=== PATIENT | female | born 1935 | race African-American/Black ===

== ENCOUNTER 2016-10-02 19:06 | Inpatient (IN) | payer MEDICARE, OTHER ==
[~2016-10-02] VITALS: Ht 166.4 cm; Wt 91.5 kg
[~2016-10-02 19:06] MED LIST: AMLO2.5T78 PO; ASCO500T22 PO; ASPI-535 PO; ATOR20TA65 PO; DEXT1DRO6 OP; DIVA250T60 PO; DOCU-144 PO; FAMO-18 PO; GLIP10TA95 PO; HYDR-3671 PO; LANT3I SC; LORA-441 PO; MULT-761 PO; NOV SC; OXYB5TAB22 PO; QUET100T PO; ZOLP5TAB PO; [UNRECOGNIZED DRUG - OTHER]; [UNRECOGNIZED DRUG - OTHER]
[2016-10-02] MEDS ORDERED: ONDANSETRON 4 MG INJ IV STA (19:30)
[2016-10-02 19:49] LABS: ADD SCAN DIFF NO
--- NOTE | 2016-10-02 19:56 | RADRPT ---
PROCEDURE: XR Chest. CLINICAL INDICATION: Abdominal pain TECHNIQUE: Anterior chest x-ray. COMPARISON: None. FINDINGS: Examination is limited due to rotated, supine positioning. The lungs are clear. No pleural effusion identified. There is no evidence of pneumothorax. Mediastinum is widened. This is likely due to rotated positioning. The cardiomediastinal silhouett e is unremarkable. The soft tissues are normal. Osseous structures are unremarkable. IMPRESSION: 1. No acute disease is seen in the chest, with limitation due to rotated positioning. RPTAT: QQ .Eris Wren MD, Date Time Electronically viewed and signed by .Eris Wren MD, on 10/02/2016 19:56 .M/
[2016-10-02 20:00] LABS: ALBUMIN 4.3 g/dl (3.3-4.9); CHLORIDE 100 mmol/L (97-110); SODIUM 145 mmol/L (135-144)
[2016-10-02 20:01] LABS: POTASSIUM 4.4 mmol/L (3.5-5.1)
[2016-10-02 20:02] LABS: CREATININE 1.35 mg/dl (0.44-1.00)
[2016-10-02 20:03] LABS: ALANINE AMINOTRANSFERASE 29 IU/L (13-69); ALBUMIN/GLOBULIN RATIO 1.07; ALKALINE PHOSPHATASE 120 IU/L (42-121); ANION GAP 21 (8-16); ASPARTATE AMINO TRANSFERASE 22 IU/L (15-46); BILIRUBIN,INDIRECT 0.2 mg/dl (0-1.1); BILIRUBIN,TOTAL 0.2 mg/dl (0.2-1.3); CARBON DIOXIDE 28 mmol/L (21-31); GLUCOSE 215 mg/dl (70-220); TOTAL PROTEIN 8.3 g/dl (6.1-8.1)
[2016-10-02 20:04] LABS: BASOPHILS % 0.2 % (0.0-2.0); EOSINOPHILS % 0.3 % (0.0-7.0); HEMOGLOBIN 13.7 g/dl (12.0-16.0); LYMPHOCYTES # 1.6 10^3/ul (0.8-2.9); LYMPHOCYTES % 17.3 % (15.0-51.0); MEAN CORPUSCULAR HGB CONC 31.9 g/dl (32.0-37.0); MEAN CORPUSCULAR VOLUME 87.8 fl (82.0-101.0); MEAN PLATELET VOLUME 10.6 fl (7.4-10.4); MONOCYTE # 0.3 10^3/ul (0.3-0.9); MONOCYTES % 3.3 % (0.0-11.0); NEUTROPHIL # 7.4 10^3/ul (1.6-7.5); NEUTROPHILS % 78.6 % (39.0-77.0); PLATELET COUNT 244 10^3/UL (140-415); RED CELL DISTRIBUTION WIDTH 14.2 % (11.5-14.5); WHITE BLOOD COUNT 9.4 10^3/ul (4.8-10.8)
[2016-10-02 20:24] LABS: TROPONIN-I < 0.012 ng/ml (0.00-0.12)
[2016-10-02] MEDS ORDERED: IODIXANOL LOCM 100 ML BTL ONE (20:26)
[2016-10-02] MEDS ORDERED: SOD CHLORIDE 0.9% 100 ML ONE (20:26)
[2016-10-02 20:29] LABS: BLOOD UREA NITROGEN 31 mg/dl (7-20)
--- NOTE | 2016-10-02 21:30 | RADRPT ---
PROCEDURE: CT abdomen and pelvis with contrast. CLINICAL INDICATION: Abdominal pain. TECHNIQUE: CT scan of the abdomen and pelvis with contrast was performed. Coronal and sagittal im ages were also reformatted. 100 cc Visipaque 320 intravenous contrast was administered without comp lication. Total exam CTDIvol = 16.74 mGy and DLP = 864.86 mGy-cm. COMPARISON: None. FINDINGS: Visualized lower thorax: Mild subsegmental atelectasis is present. The visualized heart is top norm al in size with mild pericardial fat deposition. There is no evidence for pleural effusion. Liver, gallbladder, pancreas and spleen: Normal hepatic contour, attenuation in size. Rounded calc ified lesion within the left hepatic lobe is likely a benign granuloma or hemangioma the finding gabriela suring approximately 1.6 cm. No suspicious-appearing masses or ductal dilatation on this unenhanced exam are present. Multiple calcified gallstones are seen without evidence of acute cholecystitis. No common bile duct dilatation is evident. The pancreas is normal. Punctate splenic granuloma are present without splenomegaly. Adrenal glands and genitourinary system: The adrenal glands are normal bilaterally. The kidneys ar e normal in size, contour and attenuation with no evidence for masses, calculi or hydronephrosis. Ca lcification within the left renal hilum is believed to be vascular related to the renal artery The u reters are unremarkable. The urinary bladder shows no abnormality. The uterus is atrophic with vas cular calcifications. The uterus is slightly anteverted to the left. There is no evidence of ovari an or adnexal mass. Gastrointestinal system: Small sliding hiatal hernia is present the remainder of the stomach is dec ompressed and unremarkable There is no evidence of obstruction, ileus or inflammation. A small infr aumbilical right paracentral ventral hernia measures approximate 2.4 cm and contains fat and nondila megha loops of ileum without associated obstruction (series 3 image 1 of 44) there is no evidence of a ppendicitis. Copious fecal debris is present throughout the colon with a marked amount of feces in t he rectum, mild rectal wall thickening and perirectal fat inflammation cannot exclude proctitis or s tercoral colitis (series 3 images 143-154). No pneumatosis is present Peritoneum, retroperitoneum, vessels and lymph nodes: The abdominal aorta is normal in caliber. Th ere is moderate aortic and iliac system atherosclerotic calcification. Inferior vena cava is normal in caliber. There is no evidence for adenopathy. The peritoneal cavity is normal with no evidence for ascites. No pneumoperitoneum is noted Osseous structures and musculoskeletal system: Demineralization with chronic-appearing T11 compress ion deformity and severe degenerative disk narrowing at L3-4, L4-5 and L5-S1. Severe facet arthropa thy of the lower lumbar levels is also noted. There is no fracture, lytic or blastic lesion. Copio us subcutaneous adipose tissue is likely related to morbid obesity. RPTAT:HJJR IMPRESSION: 1. Fecal impaction of the rectum with mild thickening of the rectal wall and stranding of the surrou nding fat raising concern for proctitis or stercoral colitis. 2. Small infraumbilical right paracentral ventral hernia containing a nondilated loops of small bow el, no ileus or obstruction pattern is present. 3. Cholelithiasis without CT evidence of cholecystitis. 4. Chronic granulomatous disease of the spleen and likely liver. 5. Small sliding hiatal hernia. 6. Chronic-appearing T11 compression deformity with severe degenerative disk disease and facet arth ropathy at L3-4, L4-5 and L5-S1. 7. Aortic atherosclerosis is present. Physician Millicent Date Time Electronically viewed and signed by Physician Millicent on 10/02/2016 21:30 /
[2016-10-02 21:55] LABS: ADD UMIC YES; URINE BILIRUBIN (Dip) NEGATIVE (NEGATIVE); URINE BLOOD (Dip) NEGATIVE (NEGATIVE); URINE COLOR LT. YELLOW (YELLOW); URINE GLUCOSE (Dip) NEGATIVE (NEGATIVE); URINE KETONES (Dip) TRACE (NEGATIVE); URINE LEUKOCYTE ESTERASE (Dip) NEGATIVE (NEGATIVE); URINE NITRITE (Dip) NEGATIVE (NEGATIVE); URINE TOTAL PROTEIN (Dip) TRACE (NEGATIVE); URINE UROBILINOGEN (Dip) 0.2 E.U./dL (0.1-1.0)
--- NOTE | 2016-10-02 22:01 | ERD ---
ER Documentation Chief Complaint Date/Time DATE: 10/02/16 TIME: 19:25 Chief Complaint vomiting HPI 81-year-old female with a history of schizophrenia, bipolar disorder, major depression, hypertension, diabetes mellitus, hypothyroidism, hyperlipidemia, renal insufficiency and seizure disorder brought to the ED via ambulance from [facility] for evaluation of feeling sick. Patient planes of mild, crampy, diffuse, nonradiating abdominal pain with nausea and one episode of nonbloody, nonbilious emesis but denies diarrhea or constipation. No shortness of breath or cough. Denies chest pain or palpitations. No URI symptoms or body aches. No dysuria, polyuria, hematuria or flank pain. No fevers or chills. ROS All systems reviewed and are negative except as per history of present illness. Medications Home Meds Reported Medications Famotidine* (Pepcid*) 20 Mg Tablet, 20 MG PO DAILY, #30 TAB 02/15/16 Insulin Glargine* (Lantus*) 100 Unit/Ml Soln, 2 UNIT SC QHS, #1 VIAL 02/15/16 Glipizide* (Glucotrol*) 10 Mg Tablet, 20 MG PO DAILY, TAB 02/15/16 Oxybutynin Chloride* (Ditropan* XL) 5 Mg Tabsr, 5 MG PO DAILY, TAB.SA 02/15/16 Atorvastatin Calcium (Atorvastatin Calcium) 20 Mg Tablet, 40 MG PO QHS, #30 TAB 02/15/16 Ascorbic Acid (Ascorbic Acid With Rh) 500 Mg Tablet, 500 MG PO, TAB 02/15/16 Amlodipine Besylate* (Amlodipine Besylate*) 2.5 Mg Tablet, 2.5 MG PO DAILY, #30 TAB 02/15/16 Insulin Aspart* (Novolog Insulin Vial*) 100 U/Ml Vial, 0 SC SLIDING SCALE AC, VIAL 02/15/16 Dextran 70/Hypromellose (Artificial Tears) 1 Drp Droperette, 1 DRP OP 02/15/16 [Ziegar Ointment] No Conflict Check 02/15/16 Zolpidem Tartrate* (Ambien*) 5 Mg Tablet, 5 MG PO QHS Y for INSOMNIA, #30 TAB 02/15/16 [Lipizid] No Conflict Check, 20 MG BID 02/15/16 Hydralazine Hcl* (Hydralazine Hcl*) 25 Mg Tab, 25 MG PO Q8, #90 TAB 02/15/16 Quetiapine Fumarate* (Seroquel*) 100 Mg Tablet, 150 MG PO DAILY, #30 TAB 02/15/16 Divalproex Sodium* (Depakote*) 250 Mg Tablet.dr, 250 MG PO QID, TAB 02/15/16 Multivitamin (MULTI VITAMIN DAILY) 1 Each Tablet, 1 TAB PO DAILY, TAB 02/15/16 Aspirin Ec (Aspir 81) 81 Mg Tablet.dr, 81 MG PO DAILY, #30 TAB 02/15/16 Docusate Sodium* (Colace*) 100 Mg Capsule, 100 MG PO DAILY, #30 CAP 02/15/16 Lorazepam* (Ativan*) 0.5 Mg Tablet, 0.5 MG PO Q8 Y for AGITATION, #60 TAB 02/15/16 Allergies Allergies: Coded Allergies: No Known Allergy (Unverified , 02/15/16) PMhx/Soc Reviewed in chart. As per HPI. History of Surgery: Yes (SX POLYPS 1995) Anesthesia Reaction: No Hx Neurological Disorder: Yes (EPILEPSY) Hx Respiratory Disorders: Yes (COPD) Hx Cardiac Disorders: Yes (HTN) Hx Psychiatric Problems: Yes (ANXIETY, DEPRESSION, BIPOLAR, SCHIZOPHRENIA) Hx Miscellaneous Medical Probl: Yes (ANEMIA) Hx Alcohol Use: No Hx Substance Use: No Hx Tobacco Use: No Smoking Status: Former smoker FmHx No stroke or cancer Physical Exam Vitals Vital Signs Date Time Temp Pulse Resp B/P Pulse Ox O2 Delivery O2 Flow Rate FiO2 10/02/16 19:34 98.5 104 16 137/55 98 Physical Exam Const: Alert, mild distress due to pain Head: Atraumatic Eyes: Normal Conjunctiva ENT: Normal External Ears, Nose and Mouth. Neck: Full range of motion..~ No meningismus. Resp: Clear to auscultation bilaterally Cardio: Regular rate and rhythm, no murmurs Abd: Soft, obese, mild generalized tenderness. No rebound or guarding. Skin: No petechiae or rashes Back: No midline or flank tenderness Ext: No cyanosis, or edema Neur: Awake and alert Psych: Patient appears anxious but not depressed. Cooperative. Result Diagram: 10/03/1662110/03/16621 Results 24 hrs Laboratory Tests Test 10/02/16 19:17 10/02/16 19:40 10/02/16 21:20 Bedside Glucose 206mg/dL Alanine Aminotransferase (ALT/SGPT) 29IU/L Albumin 4.3g/dl Albumin/Globulin Ratio 1.07 Alkaline Phosphatase 120IU/L Anion Gap 21 Aspartate Amino Transf (AST/SGOT) 22IU/L Basophils # 0.010^3/ul Basophils % 0.2% Blood Urea Nitrogen 31mg/dl Calcium Level 10.0mg/dl Carbon Dioxide Level 28mmol/L Chloride Level 100mmol/L Creatinine 1.35mg/dl Direct Bilirubin 0.00mg/dl Eosinophils # 0.010^3/ul Eosinophils % 0.3% Globulin 4.00g/dl Glucose Level 215mg/dl Hematocrit 43.0% Hemoglobin 13.7g/dl Indirect Bilirubin 0.2mg/dl Lipase 111U/L Lymphocytes # 1.610^3/ul Lymphocytes % 17.3% Mean Corpuscular Hemoglobin 28.0pg Mean Corpuscular Hemoglobin Concent 31.9g/dl Mean Corpuscular Volume 87.8fl Mean Platelet Volume 10.6fl Monocytes # 0.310^3/ul Monocytes % 3.3% Neutrophils # 7.410^3/ul Neutrophils % 78.6% Nucleated Red Blood Cells # 0.010^3/ul Nucleated Red Blood Cells % 0.0/100WBC Platelet Count 02522^3/UL Potassium Level 4.4mmol/L Red Blood Count 4.9010^6/ul Red Cell Distribution Width 14.2% Sodium Level 145mmol/L Total Bilirubin 0.2mg/dl Total Protein 8.3g/dl Troponin I < 0.012ng/ml White Blood Count 9.410^3/ul Urine Bilirubin NEGATIVE Urine Clarity CLEAR Urine Color LT. YELLOW Urine Glucose NEGATIVE% Urine Hemoglobin NEGATIVE Urine Ketones TRACE Urine Leukocyte Esterase NEGATIVE Urine Microscopic RBC 0-2/HPF Urine Microscopic WBC 0-2/HPF Urine Nitrite NEGATIVE Urine Specific [place] 1.015 Urine Squamous Epithelial Cells OCCASIONAL Urine Total Protein TRACE Urine Urobilinogen 0.2 E.U./dL Urine pH 7.5 Current Medications Medications (Trade) Dose Ordered Sig/Gail Route PRN Reason Start Time Stop Time Status Last Admin Dose Admin Ondansetron HCl (Zofran Inj) 4 mg ONCE STAT IV 10/02/16 19:30 10/02/16 19:34 DC 10/02/16 19:53 IV Flush 10 ml 10 ml STK-MED ONCE .ROUTE 10/02/16 20:26 10/02/16 20:27 DC 10/02/16 20:46 Sodium Chloride (NS) 100 ml @ ud STK-MED ONCE .ROUTE 10/02/16 20:26 10/02/16 20:27 DC 10/02/16 20:46 Iodixanol 100 ml 100 ml STK-MED ONCE .ROUTE 10/02/16 20:26 10/02/16 20:27 DC 10/02/16 20:46 Piperacillin Sod/ Tazobactam Sod (Zosyn 3.375gm/ 100 ml (Pmx)) 100 ml @ 200 mls/hr ONCE ONCE IVPB 10/02/16 22:30 10/02/16 22:59 DC 10/02/16 22:44 EKG: TIME: 19:14. Sinus tachycardia. Ventricular rate 106. T-wave flattening in leads II, III, and aVF but no acute ST segment elevation or depression. No axis deviation or ectopy. Normal MT and QRS. EP Interpretation: Abnormal EKG. IMAGING: PROCEDURE: XR Chest. CLINICAL INDICATION: Abdominal pain TECHNIQUE: Anterior chest x-ray. COMPARISON: None. FINDINGS: Examination is limited due to rotated, supine positioning. The lungs are clear. No pleural effusion identified. There is no evidence of pneumothorax. Mediastinum is widened. This is likely due to rotated positioning. The cardiomediastinal silhouette is unremarkable. The soft tissues are normal. Osseous structures are unremarkable. IMPRESSION: 1. No acute disease is seen in the chest, with limitation due to rotated positioning. RPTAT: QQ .Eris Wren MD, MD Date Time Electronically viewed and signed by .Eris Wren MD, on 10/02/2016 19: 56 .M/ PROCEDURE: CT abdomen and pelvis with contrast. CLINICAL INDICATION: Abdominal pain. TECHNIQUE: CT scan of the abdomen and pelvis with contrast was performed. Coronal and sagittal images were also reformatted. 100 cc Visipaque 320 intravenous contrast was administered without complication. Total exam CTDIvol = 16.74 mGy and DLP = 864.86 mGy-cm. COMPARISON: None. FINDINGS: Visualized lower thorax: Mild subsegmental atelectasis is present. The visualized heart is top normal in size with mild pericardial fat deposition. There is no evidence for pleural effusion. Liver, gallbladder, pancreas and spleen: Normal hepatic contour, attenuation in size. Rounded calcified lesion within the left hepatic lobe is likely a benign granuloma or hemangioma the finding measuring approximately 1.6 cm. No suspicious-appearing masses or ductal dilatation on this unenhanced exam are present. Multiple calcified gallstones are seen without evidence of acute cholecystitis. No common bile duct dilatation is evident. The pancreas is normal. Punctate splenic granuloma are present without splenomegaly. Adrenal glands and genitourinary system: The adrenal glands are normal bilaterally. The kidneys are normal in size, contour and attenuation with no evidence for masses, calculi or hydronephrosis. Calcification within the left renal hilum is believed to be vascular related to the renal artery The ureters are unremarkable. The urinary bladder shows no abnormality. The uterus is atrophic with vascular calcifications. The uterus is slightly anteverted to the left. There is no evidence of ovarian or adnexal mass. Gastrointestinal system: Small sliding hiatal hernia is present the remainder of the stomach is decompressed and unremarkable There is no evidence of obstruction, ileus or inflammation. A small infraumbilical right paracentral ventral hernia measures approximate 2.4 cm and contains fat and nondilated loops of ileum without associated obstruction (series 3 image 1 of 44) there is no evidence of appendicitis. Copious fecal debris is present throughout the colon with a marked amount of feces in the rectum, mild rectal wall thickening and perirectal fat inflammation cannot exclude proctitis or stercoral colitis ( series 3 images 143-154). No pneumatosis is present Peritoneum, retroperitoneum, vessels and lymph nodes: The abdominal aorta is normal in caliber. There is moderate aortic and iliac system atherosclerotic calcification. Inferior vena cava is normal in caliber. There is no evidence for adenopathy. The peritoneal cavity is normal with no evidence for ascites. No pneumoperitoneum is noted Osseous structures and musculoskeletal system: Demineralization with chronic- appearing T11 compression deformity and severe degenerative disk narrowing at L3 -4, L4-5 and L5-S1. Severe facet arthropathy of the lower lumbar levels is also noted. There is no fracture, lytic or blastic lesion. Copious subcutaneous adipose tissue is likely related to morbid obesity. RPTAT:HJJR IMPRESSION: 1. Fecal impaction of the rectum with mild thickening of the rectal wall and stranding of the surrounding fat raising concern for proctitis or stercoral colitis. 2. Small infraumbilical right paracentral ventral hernia containing a nondilated loops of small bowel, no ileus or obstruction pattern is present. 3. Cholelithiasis without CT evidence of cholecystitis. 4. Chronic granulomatous disease of the spleen and likely liver. 5. Small sliding hiatal hernia. 6. Chronic-appearing T11 compression deformity with severe degenerative disk disease and facet arthropathy at L3-4, L4-5 and L5-S1. 7. Aortic atherosclerosis is present. Physician Millicent Date Time Electronically viewed and signed by Physician Millicent on 10/02/2016 21:30 JR/ Procedures/MDM DOCUMENTS REVIEWED: ED nurse, prior records, [facility] facility record MEDICAL DECISION MAKIN-year-old female with a history of schizophrenia, bipolar disorder, major depression, hypertension, diabetes mellitus, hypothyroidism, hyperlipidemia, renal insufficiency and seizure disorder brought to the ED via ambulance from [facility] for evaluation of feeling sick. CT consistent with fecal impaction and colitis/proctitis. Zosyn. No evidence of abscess, obstruction or other acute intra-abdominal process. No rebound, guarding or other signs of peritonitis. No criteria for SIRS or sepsis. C. Diff considered. Patient will be admitted to med/surg for GI consultation, disimpaction, further evaluation and management. Counseled patient and family regarding diagnosis, diagnostic results and plan for admission. CALLS/CONSULTS: Time 22:45, Dr. Dontae Rogers, Recommends admission to [facility]. PATIENT CARE TRANSITIONED: Time: 23:10. Dr. Ted Rogers. Departure Diagnosis: Primary Impression: Abdominal pain, acute, generalized Additional Impressions: Proctitis Fecal impaction Diabetes mellitus type 2 in obese Schizophrenia Schizophrenia type: unspecified Qualified Code: F20.9 - Schizophrenia, unspecified type Condition: Serious TOLU HUFF MD Oct 02, 2016 22:01
[2016-10-02 22:03] LABS: SQUAMOUS EPITHELIAL CELL,UR OCCASIONAL; URINE RBCS 0-2 /HPF (0)
[2016-10-02] MEDS ORDERED: PIPER-TAZO 3.375 GM IV (PMX) 100 ML IVPB ONE (22:30)
[2016-10-02] MEDS ORDERED: ONDANSETRON 4 MG INJ IV PRN (23:30)
[2016-10-02] MEDS ORDERED: ACETAMINOPHEN 325 MG TAB PO PRN (23:30)
[2016-10-03 00:10] VITALS: Ht 166.4 cm; Wt 91.5 kg
[2016-10-03] MEDS ORDERED: ACETAMINOPHEN 325 MG TAB PO PRN (01:00)
[2016-10-03] MEDS ORDERED: PIPER-TAZO 3.375 GM IV (PMX) 100 ML IVPB SCH (01:00)
[2016-10-03] MEDS ORDERED: DEXTROSE 50% 50 ML SYRINGE IV PRN ×3 (01:00→02:00)
[2016-10-03] MEDS ORDERED: BISACODYL 10 MG SUPP PR PRN (01:30)
[2016-10-03] MEDS ORDERED: glipiZIDE 10 MG TAB PO SCH (01:30)
[2016-10-03] MEDS ORDERED: ZOLPIDEM 5 MG TAB PO PRN (01:30)
[2016-10-03] MEDS ORDERED: QUETIAPINE 25 MG TAB PO PRN (01:30)
[2016-10-03] MEDS ORDERED: MAGNESIUM HYDROXIDE 30ML CUP PO PRN (01:30)
[2016-10-03] MEDS ORDERED: GLUCAGON 1 MG INJ IM PRN (02:00)
[2016-10-03] MEDS: ACCUCHECK XX SCH (02:00)
[2016-10-03] MEDS ORDERED: GLUCOSE GEL 15 GRAM TUBE BUCCAL PRN (02:00)
[2016-10-03] MEDS ORDERED: GLUCOSE GEL 15 GRAM TUBE PO PRN ×2 (02:00)
[2016-10-03] MEDS: INSULIN ASPART [NOVOLOG] 3 ML PEN SC SCH ×5 (02:13→21:00)
[2016-10-03] MEDS: ATORVASTATIN 40 MG TAB PO SCH ×2 (02:19→22:02)
[2016-10-03] MEDS: DOCUSATE SODIUM 100 MG CAP PO SCH ×2 (02:19→09:22)
[2016-10-03] MEDS: GABAPENTIN 100 MG CAP PO SCH ×4 (02:20→22:01)
[2016-10-03] MEDS: FAMOTIDINE 20 MG TAB PO SCH ×2 (02:20→22:02)
[2016-10-03] MEDS: QUETIAPINE 25 MG TAB PO SCH ×4 (02:22→22:02)
[2016-10-03] MEDS: OXCARBAZEPINE 300 MG TAB PO SCH ×4 (02:22→22:02)
[2016-10-03 03:00] VITALS: BP 161/79; RESP 20
[2016-10-03] MEDS: PIPER-TAZO 3.375 GM IV (PMX) 100 ML IVPB SCH ×3 (05:57→22:01)
[2016-10-03 06:46] LABS: ADD SCAN DIFF NO
[2016-10-03 06:52] LABS: BASOPHILS % 0.2 % (0.0-2.0); EOSINOPHILS # 0.1 10^3/ul (0.0-0.5); EOSINOPHILS % 0.5 % (0.0-7.0); HEMATOCRIT 40.9 % (37.0-47.0); HEMOGLOBIN 13.1 g/dl (12.0-16.0); LYMPHOCYTES # 2.2 10^3/ul (0.8-2.9); LYMPHOCYTES % 19.9 % (15.0-51.0); MEAN CORPUSCULAR HEMOGLOBIN 27.7 pg (29.0-33.0); MEAN CORPUSCULAR VOLUME 86.5 fl (82.0-101.0); MEAN PLATELET VOLUME 10.7 fl (7.4-10.4); MONOCYTE # 0.6 10^3/ul (0.3-0.9); MONOCYTES % 5.6 % (0.0-11.0); NEUTROPHIL # 8.1 10^3/ul (1.6-7.5); NEUTROPHILS % 73.5 % (39.0-77.0); PLATELET COUNT 193 10^3/UL (140-415); RED BLOOD COUNT 4.73 10^6/ul (4.20-5.40); RED CELL DISTRIBUTION WIDTH 14.3 % (11.5-14.5)
[2016-10-03 07:06] LABS: POTASSIUM 4.6 mmol/L (3.5-5.1)
[2016-10-03 07:09] LABS: CREATININE 1.26 mg/dl (0.44-1.00)
[2016-10-03 07:10] LABS: CALCIUM 9.6 mg/dl (8.4-10.2)
[2016-10-03 07:35] VITALS: RESP 18
[2016-10-03] MEDS: INSULIN DETEMIR [LEVEMIR] 3ML CART SC SCH ×2 (08:21→22:09)
[2016-10-03] MEDS: AMLODIPINE 2.5 MG TAB PO SCH (09:00)
[2016-10-03] MEDS: OXYBUTYNIN 5 MG TAB PO SCH (09:23)
[2016-10-03] MEDS: LINAGLIPTIN 5 MG TABLET PO SCH (09:24)
[2016-10-03] MEDS: ASCORBIC ACID 500 MG TAB PO SCH (09:24)
--- NOTE | 2016-10-03 11:46 | HP ---
DATE OF ADMISSION: 10/02/2016 CHIEF COMPLAINT: Vomiting. HISTORY OF PRESENT ILLNESS: This is a 81-year-old female with a past medical history of schizophren ia, bipolar disorder, depression, hypertension, diabetes, hypothyroidism, dyslipidemia, history of s eizure disorder, CKD, who came into [facility] room from her shelter fac[facility] l[facility] due to an episode of vomiting and feeling sick. The patient also on admission was complaining about abdominal pain. The patient in the emergency room had a CT scan of the abdomen and pelvis whi ch showed findings of fecal impaction of the rectal wall and concerning for possible proctitis or co litis. The patient also noted to have a hernia, but no evidence of obstruction. The patient in the emergency room was given IV antibiotics, IV fluids, and admitted to medical surgery for evaluation. Overnight the patient has been stable, has been tolerating p.o. No episodes of hemoptysis, hemate mesis, or hematochezia noted. PAST MEDICAL HISTORY: As stated above, history of schizophrenia, bipolar disorder, history of depre ssion, hypertension, diabetes, hypothyroidism, dyslipidemia, CKD. PAST SURGICAL HISTORY: Status post polyp removal. ALLERGIES: NO KNOWN DRUG ALLERGIES. FAMILY HISTORY: Noncontributory. SOCIAL HISTORY: Lives at a skilled nurse facility. MEDICATIONS: The patient's medications have been reviewed and reconciled. REVIEW OF SYSTEMS: A 14-point review of systems was conducted. Pertinent positives in HPI, otherwi se negative. PHYSICAL EXAMINATION: VITAL SIGNS: Blood pressure is 106/79, respirations 20, pulse 105, temperature 98.1. HEENT: Head is normocephalic. NECK: Supple. HEART: Regular rate. LUNGS: Show diminished breath sounds at the base. ABDOMEN: Soft, nontender to palpation. No rebound or guarding. EXTREMITIES: Negative for clubbing or cyanosis. No edema. DERMATOLOGIC: No rashes. MUSCULOSKELETAL: No joint effusions. NEUROLOGIC: Limited exam due to lack of patient cooperation, but no focal deficits. LABORATORY DATA: Shows sodium 144, potassium 4.6, chloride BUN 29, creatinine 1.26. White co unt 11.0, hemoglobin 13.1, hematocrit 40.9, platelet count 193,000. ASSESSMENT AND PLAN: 1. This is a 81-year-old female who presents with abdominal pain and vomiting. Etiology may be sec ondary to prostatitis/colitis. The patient's CT scan of the abdomen and pelvis showed findings conc erning for proctitis and possible colitis. Plan at this point is to continue the patient on antibio tic therapy. We will place a gastroenterology consult for evaluation. We will continue oral feedin g at this time. We will give antiemetic therapy as needed. Continue pain control, monitor closely. 2. Acute encephalopathy on top of a history of dementia/schizophrenia. Etiology may be toxic metab olic. Continue to monitor. If no significant improvement, we will consider a CT scan of the brain. 3. History of schizophrenia, bipolar disorder, depression. We will continue the patient on Seroque l, Depakote, Ativan, and monitor. 4. History of anxiety disorder and depression. We will continue Ativan. 5. Chronic kidney disease with possible component of acute kidney injury. Plan is to continue curr ent treatment plan. The patient's urinalysis was reviewed. No active sediment. Continue supportiv e care, renally dose all meds, avoid nephrotoxins. 6. Hypothyroidism. Continue Synthroid. 7. Diabetes. Continue Accu-Cheks and sliding scale. 8. Hypertension. Continue current blood pressure regimen. 9. Continue statin therapy. 10. Seizure disorder. We will continue Depakote. 11. Neuropathy. Continue Neurontin. Please note, I spent 25 minutes of rirt-tb-dtre time with the patient and discussing code status. T he patient is FULL CODE. Dictated By: EDMUNDO SOTO/JORDY Conf#: [id number] DID#: [id number]
--- NOTE | 2016-10-03 11:59 | CONS ---
Date/Time of Note Date/Time of Note DATE: 10/03/16 TIME: 11:57 Assessment/Plan Assessment/Plan Chief Complaint/Hosp Course ASSESSMENT 1. intractable abdominal pain and vomiting. fecal impaction vs prostatitis/ colitis. . 2. Acute encephalopathy on top of a history of dementia/schizophrenia. 3. History of schizophrenia, bipolar disorder, depression. 4. History of anxiety disorder and depression. 5. Chronic kidney disease with possible component of acute kidney injury. 6. Hypothyroidism. Continue Synthroid. 7. Diabetes. Continue Accu-Cheks and sliding scale. Recommendations: 1. check ESR/CRP to screen for inflammatory bowel disease. 2. bowel regimen to relief fecal impaction 3. enema tomorrow AM 4. KUB tomorrow AM. if still impacted, may need colonocopy for fecal disimpaction. 5. PPI Problems: Consultation Date/Type/Reason Admit Date/Time Oct 02, 2016 at 23:18 Date of Consultation: Oct 03, 2016 Type of Consultation: GI Reason for Consultation abdominal pain Hx of Present Illness 81-year-old female with a past medical history of schizophrenia, bipolar disorder, depression, hypertension, diabetes, hypothyroidism, dyslipidemia, history of seizure disorder, CKD, who is admitted from her [facility] facility due to intractable abdominal pain, an episode of vomiting, and feeling sick. Work up with CT scan of the abdomen and pelvis showed findings of fecal impaction of the rectal wall and concerning for possible proctitis or colitis. The patient also noted to have a hernia, but no evidence of obstruction. The patient in the emergency room was given IV antibiotics, IV fluids, and admitted to medical surgery for evaluation. She is tolerating p.o. No episodes of hemoptysis, hematemesis, or hematochezia noted. All point ROS administered, pertinent positives and negatives in HPI otherwise negative. Past Medical History 1. Schizophrenia. 2. Bipolar disorder. 3. Depression. 4. Hypertension. 5. Diabetes. 6. Hypothyroidism. 7. Dyslipidemia. 8. Seizure disorder. 9. Chronic renal disease. Past Surgical History Past Surgical Hx: no surgical history Family History Significant Family History: no pertinent family hx Social History Alcohol Use: none Smoking Status: Former smoker Drug Use: none Exam/Review of Systems Vital Signs Vitals Vital Signs Date Time Temp Pulse Resp B/P Pulse Ox O2 Delivery O2 Flow Rate FiO2 10/03/16 07:35 98.1 96 18 100 10/02/16 23:41 Room Air Intake and Output 10/02/16 10/02/16 10/03/16 15:00 23:00 07:00 Intake Total 850 ml Balance 850 ml Exam Constitutional: frail Psych: nl mood/affect, no complaints Head: atraumatic, normocephalic Eyes: EOMI, nl conjunctiva, nl lids, nl sclera ENMT: nl external ears & nose, nl lips & teeth, nl nasal mucosa & septum Neck: non-tender, supple Respiratory: clear to auscultation, normal air movement Cardiovascular: nl pulses, regular rate and rhythm Gastrointestinal: bowel sounds, soft, tender (lower abdomen) Results Result Diagram: 10/03/1662110/03/16 06 Results 24 hrs Laboratory Tests Test 10/02/16 19:17 10/02/16 19:40 10/02/16 21:20 10/03/16 00:46 Bedside Glucose 206 212 Alanine Aminotransferase (ALT/SGPT) 29 Albumin 4.3 Albumin/Globulin Ratio 1.07 Alkaline Phosphatase 120 Anion Gap 21 H Aspartate Amino Transf (AST/SGOT) 22 Basophils # 0.0 Basophils % 0.2 Blood Urea Nitrogen 31 H Calcium Level 10.0 Carbon Dioxide Level 28 Chloride Level 100 Creatinine 1.35 H Direct Bilirubin 0.00 Eosinophils # 0.0 Eosinophils % 0.3 Globulin 4.00 H Glucose Level 215 Hematocrit 43.0 Hemoglobin 13.7 Indirect Bilirubin 0.2 Lipase 111 Lymphocytes # 1.6 Lymphocytes % 17.3 Mean Corpuscular Hemoglobin 28.0 L Mean Corpuscular Hemoglobin Concent 31.9 L Mean Corpuscular Volume 87.8 Mean Platelet Volume 10.6 H Monocytes # 0.3 Monocytes % 3.3 Neutrophils # 7.4 Neutrophils % 78.6 H Nucleated Red Blood Cells # 0.0 Nucleated Red Blood Cells % 0.0 Platelet Count 244 Potassium Level 4.4 Red Blood Count 4.90 Red Cell Distribution Width 14.2 Sodium Level 145 H Total Bilirubin 0.2 Total Protein 8.3 H Troponin I < 0.012 White Blood Count 9.4 Urine Bilirubin NEGATIVE Urine Clarity CLEAR Urine Color LT. YELLOW Urine Glucose NEGATIVE Urine Hemoglobin NEGATIVE Urine Ketones TRACE H Urine Leukocyte Esterase NEGATIVE Urine Microscopic RBC 0-2 Urine Microscopic WBC 0-2 Urine Nitrite NEGATIVE Urine Specific [place] 1.015 Urine Squamous Epithelial Cells OCCASIONAL Urine Total Protein TRACE Urine Urobilinogen 0.2 E.U./dL Urine pH 7.5 Test 10/03/16 06:22 10/03/16 07:17 10/03/16 11:25 Anion Gap 18 H Basophils # 0.0 Basophils % 0.2 Blood Urea Nitrogen 29 H Calcium Level 9.6 Carbon Dioxide Level 28 Chloride Level 103 Creatinine 1.26 H Eosinophils # 0.1 Eosinophils % 0.5 Glucose Level 190 Hematocrit 40.9 Hemoglobin 13.1 Lymphocytes # 2.2 Lymphocytes % 19.9 Magnesium Level 2.0 Mean Corpuscular Hemoglobin 27.7 L Mean Corpuscular Hemoglobin Concent 32.0 Mean Corpuscular Volume 86.5 Mean Platelet Volume 10.7 H Monocytes # 0.6 Monocytes % 5.6 Neutrophils # 8.1 H Neutrophils % 73.5 Nucleated Red Blood Cells # 0.0 Nucleated Red Blood Cells % 0.0 Phosphorus Level 3.0 Platelet Count 193 # Potassium Level 4.6 Red Blood Count 4.73 Red Cell Distribution Width 14.3 Sodium Level 144 White Blood Count 11.0 H Bedside Glucose 180 158 Medications Medications Current Medications Acetaminophen (Tylenol Tab) 650 mg Q6H PRN PO PAIN AND OR ELEVATED TEMP; Start 10/03/16 at 01:00 Insulin Detemir (Levemir) 20 unit Q12 SC Last administered on 10/03/16 08:21; Admin Dose 20 UNIT; Start 10/03/16 at 09:00 Diagnostic Test (Pha) 1 ea 1 ea 02 XX ; Start 10/03/16 at 02:00 Piperacillin Sod/ Tazobactam Sod (Zosyn 3.375gm/ 100 ml (Pmx)) 100 ml @ 200 mls /hr Q8 IVPB Last administered on 10/03/16 05:57; Admin Dose 200 MLS/HR; Start 10/03/16 at 06:00 Amlodipine Besylate (Norvasc) 2.5 mg DAILY PO ; Start 10/03/16 at 09:00 Atorvastatin Calcium (Lipitor) 40 mg HS PO Last administered on 10/03/16 02:19 ; Admin Dose 40 MG; Start 10/03/16 at 01:30 Bisacodyl (Dulcolax Supp) 10 mg DAILY PRN PA CONSTIPATION; Start 10/03/16 at 01: 30 Docusate Sodium (Colace) 100 mg BID PO Last administered on 10/03/16 09:22; Admin Dose 100 MG; Start 10/03/16 at 01:30 Famotidine (Pepcid) 20 mg HS PO Last administered on 10/03/16 02:20; Admin Dose 20 MG; Start 10/03/16 at 01:30 Gabapentin (Neurontin) 200 mg TID PO Last administered on 10/03/16 09:23; Admin Dose 200 MG; Start 10/03/16 at 01:30 Hydralazine HCl (Apresoline) 25 mg Q6H PRN PO ELEVATED BLOOD PRESSURE; Start at 01:30 Magnesium Hydroxide (Milk Of Mag) 30 ml Q12 PRN PO CONSTIPATION; Start 10/03/16 at 01:30 Oxcarbazepine (Trileptal) 300 mg TID PO Last administered on 10/03/16 09:24; Admin Dose 300 MG; Start 10/03/16 at 01:30 Oxybutynin Chloride (Ditropan) 5 mg DAILY PO Last administered on 10/03/16 09: 23; Admin Dose 5 MG; Start 10/03/16 at 09:00 Quetiapine Fumarate (Seroquel) 12.5 mg Q4 PRN PO AGITATION; Start 10/03/16 at 01 :30 Quetiapine Fumarate (Seroquel) 25 mg DAILY PO Last administered on 10/03/16 09: 23; Admin Dose 25 MG; Start 10/03/16 at 09:00 Quetiapine Fumarate (Seroquel) 50 mg BID PO Last administered on 10/03/16 09:24 ; Admin Dose 50 MG; Start 10/03/16 at 01:30 Ascorbic Acid (Vitamin C) 500 mg DAILY PO Last administered on 10/03/16 09:24; Admin Dose 500 MG; Start 10/03/16 at 09:00 Zolpidem Tartrate (Ambien) 5 mg HS PRN PO INSOMNIA; Start 10/03/16 at 01:30 Miscellaneous Information (* Miscellaneous Pharmacy Order) POLYVINYL ALCOHOL SOLUT... ONCE XX ; Start 10/03/16 at 01:30; Status UNV Linagliptin (Tradjenta) 5 mg DAILY PO Last administered on 10/03/16 09:24; Admin Dose 5 MG; Start 10/03/16 at 09:00 Miscellaneous Information 1 ea NOTE XX ; Start 10/03/16 at 02:00 Glucose (Glutose) 15 gm Q15M PRN PO DECREASED GLUCOSE; Start 10/03/16 at 02:00 Glucose (Glutose) 22.5 gm Q15M PRN PO DECREASED GLUCOSE; Start 10/03/16 at 02:00 Dextrose (D50w Syringe) 25 ml Q15M PRN IV DECREASED GLUCOSE; Start 10/03/16 at 02:00 Dextrose (D50w Syringe) 50 ml Q15M PRN IV DECREASED GLUCOSE; Start 10/03/16 at 02:00 Glucagon (Glucagen) 1 mg Q15M PRN IM DECREASED GLUCOSE; Start 10/03/16 at 02:00 Glucose (Glutose) 15 gm Q15M PRN BUCCAL DECREASED GLUCOSE; Start 10/03/16 at 02: 00 NAIMA BEY MD Oct 03, 2016 11:59
[2016-10-03] MEDS: ARTIFICIAL TEARS 15 ML OPH BOTH EYES SCH ×2 (15:13→21:00)
[2016-10-03 17:45] VITALS: BP 127/72; PULSE 82; RESP 18
--- NOTE | 2016-10-03 18:41 | CONS ---
DATE OF ADMISSION: 10/02/2016 DATE OF CONSULTATION: 10/03/2016 TYPE OF CONSULTATION: Infectious Disease. REASON FOR CONSULTATION: Antibiotic management. HISTORY OF PRESENT ILLNESS: Cherise Saleh is a 81-year-old female with numerous problems who comes in w ith vomiting and is being seen for antibiotic management. Her past problems include: 1. Schizophrenia. 2. Bipolar disorder. 3. Depression. 4. Hypertension. 5. Diabetes. 6. Hypothyroidism. 7. Dyslipidemia. 8. Seizure disorder. 9. Chronic renal disease. She lives in a group home facility and came in with nausea and vomi ting as well as abdominal pain. A CT scan of the abdomen and pelvis showed fecal impaction of the r ectal wall and possible proctitis and colitis. She was also noted to have a hernia but no evidence of obstruction. The patient was given IV antibiotics, IV fluids and admitted to the med/surg floor for evaluation. LABORATORY: On admission, her white count was 11,000, H and H of 13.1 and 40.9, platelet count 193, 000. BUN and creatinine 29/1.26. PAST MEDICAL HISTORY: As outlined. PAST SURGICAL HISTORY: Status post removal of polyps. FAMILY HISTORY: Noncontributory. SOCIAL HISTORY: She lives in a group home facility. ALLERGIES: NONE TO PENICILLIN, SULFA OR FOODS. MEDICATIONS: Per chart. REVIEW OF SYSTEMS: As per HPI. PHYSICAL EXAMINATION: GENERAL: The patient is a well-developed, well-nourished, chronically ill-appearing female who is a wake, responsive, in no acute distress. VITAL SIGNS: Stable. She is afebrile. SKIN: Without generalized rash. HEENT: Within normal limits. NECK: Supple. LYMPH NODES: None palpable. CHEST: Decreased breath sounds at the bases. HEART: Without murmur or gallop. ABDOMEN: Soft, nontender, without organosplenomegaly or masses. EXTREMITIES: Without cyanosis, clubbing, or edema. RECTAL AND GENITAL: Deferred. NEUROLOGIC: No focal neurological abnormalities. IMPRESSION AND PLAN: The patient presents with nausea, vomiting, possible colitis. Her white count today is 11.0. She was seen by Dr. Gabriel Kelly in GI consultation. The patient he notes was begun on Zosyn. There is no evidence at this point for C. difficile as far as we can tell. Urine is neg ative. We will continue on the Zosyn and observe. I will dictate my findings to Dr. Méndez and Dr Victoriano Kelly. Dictated By: JACOB RAMON MD, JD/JORDY Conf#: [id number] DID#: [id number]
[2016-10-03 20:40] VITALS: BP 115/64; RESP 20
[2016-10-04 01:47] VITALS: BP 103/57; PULSE 85; RESP 16
[2016-10-04] MEDS: ACCUCHECK XX SCH (02:00)
[2016-10-04 05:56] LABS: ADD SCAN DIFF NO
[2016-10-04 06:10] LABS: BASOPHILS % 0.3 % (0.0-2.0); EOSINOPHILS # 0.2 10^3/ul (0.0-0.5); EOSINOPHILS % 1.6 % (0.0-7.0); HEMATOCRIT 42.4 % (37.0-47.0); HEMOGLOBIN 13.5 g/dl (12.0-16.0); LYMPHOCYTES % 31.7 % (15.0-51.0); MEAN CORPUSCULAR HGB CONC 31.8 g/dl (32.0-37.0); MEAN PLATELET VOLUME 11.2 fl (7.4-10.4); MONOCYTE # 0.6 10^3/ul (0.3-0.9); MONOCYTES % 5.9 % (0.0-11.0); NEUTROPHIL # 5.7 10^3/ul (1.6-7.5); NEUTROPHILS % 60.3 % (39.0-77.0); PLATELET COUNT 204 10^3/UL (140-415); RED BLOOD COUNT 4.82 10^6/ul (4.20-5.40); RED CELL DISTRIBUTION WIDTH 14.4 % (11.5-14.5); WHITE BLOOD COUNT 9.4 10^3/ul (4.8-10.8)
[2016-10-04] MEDS: PIPER-TAZO 3.375 GM IV (PMX) 100 ML IVPB SCH ×3 (06:22→22:21)
[2016-10-04 06:37] LABS: POTASSIUM 5.3 mmol/L (3.5-5.1)
[2016-10-04 06:40] LABS: CALCIUM 9.3 mg/dl (8.4-10.2); CREATININE 1.58 mg/dl (0.44-1.00); PHOSPHORUS 4.3 mg/dl (2.5-4.9)
[2016-10-04 06:41] LABS: MAGNESIUM 2.3 mg/dl (1.7-2.5)
[2016-10-04] MEDS ORDERED: MINERAL OIL 133 ML ENEMA PR ONE (08:00)
[2016-10-04] MEDS: INSULIN ASPART [NOVOLOG] 3 ML PEN SC SCH ×4 (08:00→21:00)
[2016-10-04] MEDS: OXYBUTYNIN 5 MG TAB PO SCH (08:49)
[2016-10-04] MEDS: ASCORBIC ACID 500 MG TAB PO SCH (08:49)
[2016-10-04] MEDS: GABAPENTIN 100 MG CAP PO SCH ×3 (08:49→21:00)
[2016-10-04] MEDS: POLYETHYLENE GLYCOL 17 GM PACKET PO SCH ×2 (08:49→21:00)
[2016-10-04] MEDS: OXCARBAZEPINE 300 MG TAB PO SCH ×3 (08:50→21:00)
[2016-10-04] MEDS: LINAGLIPTIN 5 MG TABLET PO SCH (08:50)
[2016-10-04] MEDS: QUETIAPINE 25 MG TAB PO SCH ×3 (08:50→21:00)
[2016-10-04] MEDS: AMLODIPINE 2.5 MG TAB PO SCH (08:52)
[2016-10-04] MEDS: INSULIN DETEMIR [LEVEMIR] 3ML CART SC SCH ×2 (08:55→21:00)
[2016-10-04] MEDS: ARTIFICIAL TEARS 15 ML OPH BOTH EYES SCH ×3 (09:23→21:00)
--- NOTE | 2016-10-04 12:14 | PN ---
DATE: 10/04/2016 SUBJECTIVE: The patient is stable, no acute events overnight. No fevers, chills, nausea, vomiting. OBJECTIVE: VITAL SIGNS: Blood pressure 103/57, respirations 16, pulse 85, temperature 97.9. HEENT: Head is normocephalic. NECK: Supple. HEART: Regular rate. LUNGS: Show diminished breath sounds at the bases. ABDOMEN: Soft, nontender to palpation. No rebound or guarding. EXTREMITIES: Negative for clubbing, cyanosis, edema. DERMATOLOGIC: No rashes. MUSCULOSKELETAL: No joint effusions. NEUROLOGIC: No change in exam. MEDICATIONS: The patient's medications have been reviewed. LABORATORY DATA: Shows sodium 143, potassium 5.3, BUN 33, creatinine 1.58. White count 9.4, hemogl obin 13.5, hematocrit 42.4, platelet 204. The patient's cultures have been reviewed. ASSESSMENT AND PLAN: 1. Abdominal pain, etiology may be secondary to proctitis, fecal impaction. The patient was seen b y gastroenterology, greatly appreciate their help with management. Continue current medical managem ent. Continue bowel regimen and monitor. The patient remains on antibiotics. We will continue to follow up with infectious disease. 2. Acute encephalopathy on top of dementia and schizophrenia. Etiology appears to toxic metabolic. The patient's mental status appears to be returning back to baseline. Continue to monitor. 3. History of schizophrenia, bipolar disorder, depression. Continue current psychotropic medicatio ns. 4. Chronic kidney disease with possible component of acute kidney injury. Continue current treatme nt plan. Urinalysis was reviewed. No active sediment. Continue supportive care, renally dose all meds. 5. Mild hyperkalemia. Continue to monitor. We will place the patient on a low potassium diet. 6. Hypothyroidism. Continue Synthroid. 7. Diabetes, continue Accu-Cheks and sliding scale. 8. Dyslipidemia. Continue statin therapy. 9. Seizure disorder. Continue Depakote. 10. Neuropathy. Continue Neurontin. 11. Hypertension. Continue current blood pressure regimen. Dictated By: EDMUNDO DEY DO NR/NTS Conf#: [id number] DID#: [id number]
--- NOTE | 2016-10-04 13:49 | PN ---
DATE: 10/04/2016 SUBJECTIVE: No events overnight. No fevers. Patient is awake, lying comfortably in bed. LABORATORY DATA: WBC today 9.4, no shift, no bands. BUN 33, creatinine 1.58. MICROBIOLOGY: Nares swab came back negative for MRSA. DIAGNOSTICS: CT of the abdomen revealed fecal impaction of the rectum with mild thickening of the r ectal wall, concerning for proctitis or stercoral colitis. Cholelithiasis without evidence of geovany cystitis, T11 compression deformity. ANTIMICROBIALS: The patient is on Zosyn. PHYSICAL EXAMINATION: GENERAL: This is a morbidly obese elderly woman who is alert, in no distress. HEENT: Head atraumatic, normocephalic. Sclerae anicteric. Buccal mucosa dry. NECK: Supple, trachea midline. CHEST: Rise symmetrical. Breath sounds diminished to bases. HEART: S1, S2. ABDOMEN: Soft, bowel sounds present. EXTREMITIES: No cyanosis. ASSESSMENT: 1. Systemic inflammatory response syndrome secondary to #2. 2. Fecal impaction, questionable proctitis versus colitis, status post abdominal pain and vomiting. 3. Obesity. 4. Diabetes. 5. History of schizophrenia, bipolar disorder and depression. PLAN: The patient remains stable. She is being seen by gastroenterology pending KUB, pending enema and possible disimpaction. Continue Zosyn for now. Dictated By: LIZBET GRAY ROLL RECLAIMER for JACOB HAINES/JORDY Conf#: [id number] DID#: [id number]
--- NOTE | 2016-10-04 19:47 | CONS ---
Date/Time of Note Date/Time of Note DATE: 10/04/16 TIME: 19:44 Assessment/Plan Assessment/Plan Chief Complaint/Hosp Course ASSESSMENT 1. intractable abdominal pain and vomiting. fecal impaction vs prostatitis/ colitis. CRP elevated which suggest colitis 2. Acute encephalopathy on top of a history of dementia/schizophrenia. 3. History of schizophrenia, bipolar disorder, depression. 4. History of anxiety disorder and depression. 5. Chronic kidney disease with possible component of acute kidney injury. 6. Hypothyroidism. Continue Synthroid. 7. Diabetes. Continue Accu-Cheks and sliding scale. Recommendations: 1. repeat KUB 2. bowel regimen to relief fecal impaction. will add a dose of mag citrate tomorrow AM to see if it will help to relief the fecal impaction 3. try tap water enema tomorrow AM 4. KUB tomorrow AM. For whatever reason, it is taken but no images for me to review. So I will re-order the KUB 5. PPI 6. If still no BM tomorrow, will need to do colonoscopy decompression Problems: Consultation Date/Type/Reason Admit Date/Time Oct 02, 2016 at 23:18 Initial Consult Date 10/03/16 Type of Consultation: GI 24 HR Interval Summary Free Text/Dictation d/w nurse that patient still do not have any BM despite standing miralax and mineral oil enema Exam/Review of Systems Vital Signs Vitals Vital Signs Date Time Temp Pulse Resp B/P Pulse Ox O2 Delivery O2 Flow Rate FiO2 10/04/16 01:47 85 16 103/57 95 Room Air 10/03/16 20:40 97.9 Intake and Output 10/03/16 10/03/16 10/04/16 15:00 23:00 07:00 Intake Total 100 ml 480 ml 50 ml Balance 100 ml 480 ml 50 ml Exam Constitutional: alert, oriented, well developed Psych: nl mood/affect, no complaints Head: atraumatic, normocephalic Eyes: EOMI, nl conjunctiva, nl lids ENMT: nl external ears & nose, nl lips & teeth, nl nasal mucosa & septum Neck: non-tender, supple Respiratory: clear to auscultation, normal air movement Cardiovascular: nl pulses, regular rate and rhythm Gastrointestinal: bowel sounds, non-tender, soft Results Result Diagram: 10/04/16 0535 10/04/16 0535 Results 24 hrs Laboratory Tests Test 10/03/16 22:01 10/04/16 02:03 10/04/16 05:35 10/04/16 07:36 Bedside Glucose 122 120 94 Anion Gap 16 Basophils # 0.0 Basophils % 0.3 Blood Urea Nitrogen 33 H C-Reactive Protein 1.7 H Calcium Level 9.3 Carbon Dioxide Level 27 Chloride Level 105 Creatinine 1.58 H Eosinophils # 0.2 Eosinophils % 1.6 Glucose Level 119 # Hematocrit 42.4 Hemoglobin 13.5 Lymphocytes # 3.0 H Lymphocytes % 31.7 Magnesium Level 2.3 Mean Corpuscular Hemoglobin 28.0 L Mean Corpuscular Hemoglobin Concent 31.8 L Mean Corpuscular Volume 88.0 Mean Platelet Volume 11.2 H Monocytes # 0.6 Monocytes % 5.9 Neutrophils # 5.7 Neutrophils % 60.3 Nucleated Red Blood Cells # 0.0 Nucleated Red Blood Cells % 0.0 Phosphorus Level 4.3 Platelet Count 204 Potassium Level 5.3 H Red Blood Count 4.82 Red Cell Distribution Width 14.4 Sodium Level 143 White Blood Count 9.4 Test 10/04/16 12:01 10/04/16 17:27 Bedside Glucose 180 169 Medications Medications Current Medications Acetaminophen (Tylenol Tab) 650 mg Q6H PRN PO PAIN AND OR ELEVATED TEMP; Start 10/03/16 at 01:00 Insulin Detemir (Levemir) 20 unit Q12 SC Last administered on 10/04/16 08:55; Admin Dose 20 UNIT; Start 10/03/16 at 09:00 Diagnostic Test (Pha) 1 ea 1 ea 02 XX ; Start 10/03/16 at 02:00 Piperacillin Sod/ Tazobactam Sod (Zosyn 3.375gm/ 100 ml (Pmx)) 100 ml @ 200 mls /hr Q8 IVPB Last administered on 10/04/16 17:16; Admin Dose 200 MLS/HR; Start 10/03/16 at 06:00 Amlodipine Besylate (Norvasc) 2.5 mg DAILY PO Last administered on 10/04/16 08: 52; Admin Dose 2.5 MG; Start 10/03/16 at 09:00 Atorvastatin Calcium (Lipitor) 40 mg HS PO Last administered on 10/03/16 22:02 ; Admin Dose 40 MG; Start 10/03/16 at 01:30 Famotidine (Pepcid) 20 mg HS PO Last administered on 10/03/16 22:02; Admin Dose 20 MG; Start 10/03/16 at 01:30 Gabapentin (Neurontin) 200 mg TID PO Last administered on 10/04/16 12:54; Admin Dose 200 MG; Start 10/03/16 at 01:30 Hydralazine HCl (Apresoline) 25 mg Q6H PRN PO ELEVATED BLOOD PRESSURE; Start at 01:30 Magnesium Hydroxide (Milk Of Mag) 30 ml Q12 PRN PO CONSTIPATION; Start 10/03/16 at 01:30 Oxcarbazepine (Trileptal) 300 mg TID PO Last administered on 10/04/16 12:54; Admin Dose 300 MG; Start 10/03/16 at 01:30 Oxybutynin Chloride (Ditropan) 5 mg DAILY PO Last administered on 10/04/16 08: 49; Admin Dose 5 MG; Start 10/03/16 at 09:00 Quetiapine Fumarate (Seroquel) 12.5 mg Q4 PRN PO AGITATION; Start 10/03/16 at 01 :30 Quetiapine Fumarate (Seroquel) 25 mg DAILY PO Last administered on 10/04/16 08: 50; Admin Dose 25 MG; Start 10/03/16 at 09:00 Quetiapine Fumarate (Seroquel) 50 mg BID PO Last administered on 10/04/16 09:22 ; Admin Dose 50 MG; Start 10/03/16 at 01:30 Ascorbic Acid (Vitamin C) 500 mg DAILY PO Last administered on 10/04/16 08:49; Admin Dose 500 MG; Start 10/03/16 at 09:00 Zolpidem Tartrate (Ambien) 5 mg HS PRN PO INSOMNIA; Start 10/03/16 at 01:30 Eye Lubricant (Artificial Tears Oph) 1 drop TID BOTH EYES Last administered on 10/04/16 12:54; Admin Dose 1 DROP; Start 10/03/16 at 14:30 Linagliptin (Tradjenta) 5 mg DAILY PO Last administered on 10/04/16 08:50; Admin Dose 5 MG; Start 10/03/16 at 09:00 Miscellaneous Information 1 ea NOTE XX ; Start 10/03/16 at 02:00 Glucose (Glutose) 15 gm Q15M PRN PO DECREASED GLUCOSE; Start 10/03/16 at 02:00 Glucose (Glutose) 22.5 gm Q15M PRN PO DECREASED GLUCOSE; Start 10/03/16 at 02:00 Dextrose (D50w Syringe) 25 ml Q15M PRN IV DECREASED GLUCOSE; Start 10/03/16 at 02:00 Dextrose (D50w Syringe) 50 ml Q15M PRN IV DECREASED GLUCOSE; Start 10/03/16 at 02:00 Glucagon (Glucagen) 1 mg Q15M PRN IM DECREASED GLUCOSE; Start 10/03/16 at 02:00 Glucose (Glutose) 15 gm Q15M PRN BUCCAL DECREASED GLUCOSE; Start 10/03/16 at 02: 00 Polyethylene Glycol (Miralax) 17 gm BID PO Last administered on 10/04/16t 08:49 ; Admin Dose 17 GM; Start 10/04/16 at 09:00 NAIMA BEY MD Oct 04, 2016 19:47
[2016-10-04 20:32] VITALS: BP 133/67; RESP 18
[2016-10-04] MEDS: FAMOTIDINE 20 MG TAB PO SCH (21:00)
[2016-10-04] MEDS: ATORVASTATIN 40 MG TAB PO SCH (21:00)
--- NOTE | 2016-10-05 00:55 | RADRPT ---
PROCEDURE: XR acute abdominal series. CLINICAL INDICATION: Possible fecal impaction. TECHNIQUE: Two-view abdomen x-ray series. COMPARISON: None. FINDINGS: Large amount of solid stool in the rectum. There are no dilated loops of small bowel to suggest a harman wel obstruction. There is no pneumoperitoneum. No abnormal calcifications are identified. The lung bases are clear. Stomach is distended with gas. Demineralization limits evaluation of fine osseous detail. IMPRESSION: Large, solid stool in the rectum suggests a degree of impaction. RPTAT: [facility] Physician Quinten Date Time Electronically viewed and signed by Physician Quinten on 10/05/2016 00:54 RS/
[2016-10-05] MEDS: ACCUCHECK XX SCH (02:00)
[2016-10-05] MEDS: PIPER-TAZO 3.375 GM IV (PMX) 100 ML IVPB SCH ×2 (06:23→13:29)
[2016-10-05] MEDS: INSULIN ASPART [NOVOLOG] 3 ML PEN SC SCH ×4 (08:00→20:24)
[2016-10-05] MEDS ORDERED: MAGNESIUM CITRATE 300 ML BTL PO ONE (09:00)
[2016-10-05] MEDS: ASCORBIC ACID 500 MG TAB PO SCH (09:16)
[2016-10-05] MEDS: GABAPENTIN 100 MG CAP PO SCH ×3 (09:16→20:13)
[2016-10-05] MEDS: OXCARBAZEPINE 300 MG TAB PO SCH ×3 (09:16→20:13)
[2016-10-05] MEDS: QUETIAPINE 25 MG TAB PO SCH ×3 (09:16→20:13)
[2016-10-05] MEDS: OXYBUTYNIN 5 MG TAB PO SCH (09:16)
[2016-10-05] MEDS: LINAGLIPTIN 5 MG TABLET PO SCH (09:16)
[2016-10-05] MEDS: AMLODIPINE 2.5 MG TAB PO SCH (09:18)
[2016-10-05] MEDS: INSULIN DETEMIR [LEVEMIR] 3ML CART SC SCH ×2 (09:20→20:11)
[2016-10-05] MEDS: ARTIFICIAL TEARS 15 ML OPH BOTH EYES SCH ×3 (09:27→20:12)
[2016-10-05] MEDS: POLYETHYLENE GLYCOL 17 GM PACKET PO SCH ×2 (09:27→20:12)
--- NOTE | 2016-10-05 10:32 | RADRPT ---
PROCEDURE: Abdomen radiograph CLINICAL INDICATION: Small bowel obstruction. Colonic dilatation TECHNIQUE: Single view of the abdomen. COMPARISON: CT abdomen pelvis 10/02/2016. FINDINGS: There is a nonspecific bowel gas pattern. There is no evidence of large or small bowel obstruction. The area of the rectum is not well seen on the current study. There is a persistent large amount o f stool throughout the colon. There are no abnormal calcifications overlying the urinary tracts. Th e bones are intact. IMPRESSION: 1. Suboptimal visualization of the rectum on the current study. Persistent large volume of stool t hroughout the remainder of the colon. RPTAT: [facility] .Sujit Ortega MD, MD Date Time Electronically viewed and signed by .Sujit Ortega MD, on 10/05/2016 10:32 .B/
--- NOTE | 2016-10-05 12:05 | PN ---
DATE: 10/05/2016 SUBJECTIVE: The patient is stable, no acute events overnight. The patient has no nausea, vomiting. No shortness of breath. OBJECTIVE: VITAL SIGNS: Blood pressure is 133/67, respirations 18, pulse 89, temperature 97.5. HEENT: Head is normocephalic. NECK: Supple. HEART: Regular rate. LUNGS: Show diminished breath sounds at the bases. ABDOMEN: Soft, nontender to palpation. No rebound or guarding. EXTREMITIES: Negative for clubbing, cyanosis. No edema. DERMATOLOGIC: No rashes. MUSCULOSKELETAL: No joint effusions. NEUROLOGIC: No change in exam. MEDICATIONS: The patient's medications have been reviewed. LABORATORY DATA: Has been reviewed. No new labs. IMAGING: The patient's KUB shows evidence of fecal impaction. ASSESSMENT AND PLAN: 1. Fecal impaction. The patient has been seen by gastroenterology. Plan is for possible colonosco py if patient does not respond to current bowel regimen. We will monitor closely. 2. Acute encephalopathy on top of dementia and schizophrenia. Etiology was toxic metabolic. Menta l status has improved, currently back at baseline. We will continue to monitor. 3. History of schizophrenia, bipolar disorder, depression. Continue current psychotropic medicatio ns. 4. Nonoliguric acute kidney injury on top of chronic kidney disease. Etiology most likely hemodyna mics. The patient's urinalysis is bland, no active sediment. At this point, continue current treat ment plan, supportive care, renally dose all meds, avoid nephrotoxins. 5. Mild hyperkalemia. Continue to monitor. Continue low-potassium diet. 6. Hypothyroidism. Continue Synthroid. 7. Diabetes. Continue Accu-Cheks and sliding scale. 8. Dyslipidemia. Continue statin therapy. 9. Seizure disorder. Continue Depakote. 10. Neuropathy. Continue Neurontin. 11. Hypertension. Continue current blood pressure regimen. 12. Gastrointestinal and deep venous thrombosis prophylaxis. Continue proton pump inhibitor and se quential leg squeezers, Lovenox. Dictated By: EDMUNDO SOTO/JORDY Conf#: [id number] DID#: [id number]
[2016-10-05] MEDS ORDERED: PEG/ELECTROLYTES 4L BTL PO SCH (12:30)
--- NOTE | 2016-10-05 13:40 | CONS ---
Date/Time of Note Date/Time of Note DATE: 10/05/16 TIME: 13:38 Assessment/Plan Assessment/Plan Chief Complaint/Hosp Course SUBJECTIVE: No events overnight. No fevers. Patient is awake, lying comfortably in bed. ANTIMICROBIALS: Zosyn. PHYSICAL EXAMINATION: GENERAL: This is a morbidly obese elderly woman who is alert, in no distress. HEENT: Head atraumatic, normocephalic. Sclerae anicteric. Buccal mucosa dry. NECK: Supple, trachea midline. CHEST: Rise symmetrical. Breath sounds diminished to bases. HEART: S1, S2. ABDOMEN: Soft, bowel sounds present. EXTREMITIES: No cyanosis. ASSESSMENT: 1. Systemic inflammatory response syndrome secondary to #2. 2. Fecal impaction, questionable proctitis versus colitis, status post abdominal pain and vomiting. 3. Obesity. 4. Diabetes. 5. History of schizophrenia, bipolar disorder and depression. PLAN: The patient remains stable. Continue present care, change abx to Flagyl and Cipro, f/u GI rec-s [facility] staff. Problems: Consultation Date/Type/Reason Admit Date/Time Oct 04, 2016 at 19:00 Initial Consult Date 10/03/16 Type of Consultation: ID Exam/Review of Systems Vital Signs Vitals Vital Signs Date Time Temp Pulse Resp B/P Pulse Ox O2 Delivery O2 Flow Rate FiO2 10/04/16 20:32 97.5 89 18 133/67 99 10/04/16 01:47 Room Air Intake and Output 10/04/16 10/04/16 10/05/16 15:00 23:00 07:00 Intake Total 1400 ml 240 ml Balance 1400 ml 240 ml Results Result Diagram: 10/04/16 0535 10/04/16 0535 Results 24 hrs Laboratory Tests Test 10/04/16 17:27 10/04/16 21:37 10/05/16 08:03 10/05/16 12:19 Bedside Glucose 169 151 138 160 Medications Medications Current Medications Acetaminophen (Tylenol Tab) 650 mg Q6H PRN PO PAIN AND OR ELEVATED TEMP; Start 10/03/16 at 01:00 Insulin Detemir (Levemir) 20 unit Q12 SC Last administered on 10/05/16t 09:20; Admin Dose 20 UNIT; Start 10/03/16 at 09:00 Diagnostic Test (Pha) 1 ea 1 ea 02 XX ; Start 10/03/16 at 02:00 Piperacillin Sod/ Tazobactam Sod (Zosyn 3.375gm/ 100 ml (Pmx)) 100 ml @ 200 mls /hr Q8 IVPB Last administered on 10/05/16 13:29; Admin Dose 200 MLS/HR; Start 10/03/16 at 06:00 Amlodipine Besylate (Norvasc) 2.5 mg DAILY PO Last administered on 10/05/16 09: 18; Admin Dose 2.5 MG; Start 10/03/16 at 09:00 Atorvastatin Calcium (Lipitor) 40 mg HS PO Last administered on 10/03/16 22:02 ; Admin Dose 40 MG; Start 10/03/16 at 01:30 Famotidine (Pepcid) 20 mg HS PO Last administered on 10/03/16 22:02; Admin Dose 20 MG; Start 10/03/16 at 01:30 Gabapentin (Neurontin) 200 mg TID PO Last administered on 10/05/16 13:29; Admin Dose 200 MG; Start 10/03/16 at 01:30 Hydralazine HCl (Apresoline) 25 mg Q6H PRN PO ELEVATED BLOOD PRESSURE; Start at 01:30 Magnesium Hydroxide (Milk Of Mag) 30 ml Q12 PRN PO CONSTIPATION; Start 10/03/16 at 01:30 Oxcarbazepine (Trileptal) 300 mg TID PO Last administered on 10/05/16 13:29; Admin Dose 300 MG; Start 10/03/16 at 01:30 Oxybutynin Chloride (Ditropan) 5 mg DAILY PO Last administered on 10/05/16 09: 16; Admin Dose 5 MG; Start 10/03/16 at 09:00 Quetiapine Fumarate (Seroquel) 12.5 mg Q4 PRN PO AGITATION; Start 10/03/16 at 01 :30 Quetiapine Fumarate (Seroquel) 25 mg DAILY PO Last administered on 10/05/16 09: 16; Admin Dose 25 MG; Start 10/03/16 at 09:00 Quetiapine Fumarate (Seroquel) 50 mg BID PO Last administered on 10/05/16 09:17 ; Admin Dose 50 MG; Start 10/03/16 at 01:30 Ascorbic Acid (Vitamin C) 500 mg DAILY PO Last administered on 10/05/16 09:16; Admin Dose 500 MG; Start 10/03/16 at 09:00 Zolpidem Tartrate (Ambien) 5 mg HS PRN PO INSOMNIA; Start 10/03/16 at 01:30 Eye Lubricant (Artificial Tears Oph) 1 drop TID BOTH EYES Last administered on 10/05/16 13:30; Admin Dose 1 DROP; Start 10/03/16 at 14:30 Linagliptin (Tradjenta) 5 mg DAILY PO Last administered on 10/05/16 09:16; Admin Dose 5 MG; Start 10/03/16 at 09:00 Miscellaneous Information 1 ea NOTE XX ; Start 10/03/16 at 02:00 Glucose (Glutose) 15 gm Q15M PRN PO DECREASED GLUCOSE; Start 10/03/16 at 02:00 Glucose (Glutose) 22.5 gm Q15M PRN PO DECREASED GLUCOSE; Start 10/03/16 at 02:00 Dextrose (D50w Syringe) 25 ml Q15M PRN IV DECREASED GLUCOSE; Start 10/03/16 at 02:00 Dextrose (D50w Syringe) 50 ml Q15M PRN IV DECREASED GLUCOSE; Start 10/03/16 at 02:00 Glucagon (Glucagen) 1 mg Q15M PRN IM DECREASED GLUCOSE; Start 10/03/16 at 02:00 Glucose (Glutose) 15 gm Q15M PRN BUCCAL DECREASED GLUCOSE; Start 10/03/16 at 02: 00 Polyethylene Glycol (Miralax) 17 gm BID PO Last administered on 10/05/16 09:27 ; Admin Dose 17 GM; Start 10/04/16 at 09:00 Enoxaparin Sodium (Lovenox) 30 mg DAILY SC ; Start 10/06/16 at 09:00 LIZBET GRAY NP Oct 05, 2016 13:40
[2016-10-05] MEDS: metroNIDAZOLE 500 MG TAB PO SCH ×2 (15:21→20:12)
[2016-10-05] MEDS: CIPROFLOXACIN 500 MG TAB PO SCH (17:27)
--- NOTE | 2016-10-05 18:03 | CONS ---
Date/Time of Note Date/Time of Note DATE: 10/05/16 TIME: 17:59 Assessment/Plan Assessment/Plan Chief Complaint/Hosp Course ASSESSMENT 1. intractable abdominal pain and vomiting. fecal impaction vs prostatitis/ colitis. CRP elevated which suggest colitis 2. Acute encephalopathy on top of a history of dementia/schizophrenia. 3. History of schizophrenia, bipolar disorder, depression. 4. History of anxiety disorder and depression. 5. Chronic kidney disease with possible component of acute kidney injury. 6. Hypothyroidism. Continue Synthroid. 7. Diabetes. Continue Accu-Cheks and sliding scale. Recommendations: 1. repeat KUB 2. trying Golytely 4 liters to see if it will help to relief the fecal impaction 3. try tap water enema tomorrow AM 4. KUB tomorrow AM. 5. PPI 6. If still no BM despite Golytely, will need to do colonoscopy for fecal impaction on Monday Problems: Consultation Date/Type/Reason Admit Date/Time Oct 04, 2016 at 19:00 Initial Consult Date 10/03/16 Type of Consultation: GI 24 HR Interval Summary Free Text/Dictation still no BM despite miralax, tap water enema, mineral enema, mag citrate. Constitutional: disoriented Exam/Review of Systems Vital Signs Vitals Vital Signs Date Time Temp Pulse Resp B/P Pulse Ox O2 Delivery O2 Flow Rate FiO2 10/04/16 20:32 97.5 89 18 133/67 99 10/04/16 01:47 Room Air Intake and Output 10/04/16 10/04/16 10/05/16 15:00 23:00 07:00 Intake Total 1400 ml 240 ml Balance 1400 ml 240 ml Exam Psych: confusion Head: atraumatic, normocephalic Eyes: EOMI, nl conjunctiva, nl lids, nl sclera ENMT: mucosa pink and moist, nl external ears & nose, nl lips & teeth, nl nasal mucosa & septum Neck: non-tender, supple Respiratory: clear to auscultation, normal air movement Cardiovascular: nl pulses, regular rate and rhythm Gastrointestinal: bowel sounds, non-tender, soft Results Result Diagram: 10/04/16 0535 10/04/16 0535 Results 24 hrs Laboratory Tests Test 10/04/16 21:37 10/05/16 08:03 10/05/16 12:19 10/05/16 17:23 Bedside Glucose 151 138 160 135 Medications Medications Current Medications Acetaminophen (Tylenol Tab) 650 mg Q6H PRN PO PAIN AND OR ELEVATED TEMP; Start 10/03/16 at 01:00 Insulin Detemir (Levemir) 20 unit Q12 SC Last administered on 10/05/16 09:20; Admin Dose 20 UNIT; Start 10/03/16 at 09:00 Diagnostic Test (Pha) (Accucheck) 1 ea 02 XX ; Start 10/03/16 at 02:00 Amlodipine Besylate (Norvasc) 2.5 mg DAILY PO Last administered on 10/05/16 09: 18; Admin Dose 2.5 MG; Start 10/03/16 at 09:00 Atorvastatin Calcium (Lipitor) 40 mg HS PO Last administered on 10/03/16 22:02 ; Admin Dose 40 MG; Start 10/03/16 at 01:30 Famotidine (Pepcid) 20 mg HS PO Last administered on 10/03/16 22:02; Admin Dose 20 MG; Start 10/03/16 at 01:30 Gabapentin (Neurontin) 200 mg TID PO Last administered on 10/05/16 13:29; Admin Dose 200 MG; Start 10/03/16 at 01:30 Hydralazine HCl (Apresoline) 25 mg Q6H PRN PO ELEVATED BLOOD PRESSURE; Start at 01:30 Magnesium Hydroxide (Milk Of Mag) 30 ml Q12 PRN PO CONSTIPATION; Start 10/03/16 at 01:30 Oxcarbazepine (Trileptal) 300 mg TID PO Last administered on 10/05/16 13:29; Admin Dose 300 MG; Start 10/03/16 at 01:30 Oxybutynin Chloride (Ditropan) 5 mg DAILY PO Last administered on 10/05/16 09: 16; Admin Dose 5 MG; Start 10/03/16 at 09:00 Quetiapine Fumarate (Seroquel) 12.5 mg Q4 PRN PO AGITATION; Start 10/03/16 at 01 :30 Quetiapine Fumarate (Seroquel) 25 mg DAILY PO Last administered on 10/05/16 09: 16; Admin Dose 25 MG; Start 10/03/16 at 09:00 Quetiapine Fumarate (Seroquel) 50 mg BID PO Last administered on 10/05/16 09:17 ; Admin Dose 50 MG; Start 10/03/16 at 01:30 Ascorbic Acid (Vitamin C) 500 mg DAILY PO Last administered on 10/05/16 09:16; Admin Dose 500 MG; Start 10/03/16 at 09:00 Zolpidem Tartrate (Ambien) 5 mg HS PRN PO INSOMNIA; Start 10/03/16 at 01:30 Eye Lubricant (Artificial Tears Oph) 1 drop TID BOTH EYES Last administered on 10/05/16 13:30; Admin Dose 1 DROP; Start 10/03/16 at 14:30 Linagliptin (Tradjenta) 5 mg DAILY PO Last administered on 10/05/16 09:16; Admin Dose 5 MG; Start 10/03/16 at 09:00 Miscellaneous Information 1 ea NOTE XX ; Start 10/03/16 at 02:00 Glucose (Glutose) 15 gm Q15M PRN PO DECREASED GLUCOSE; Start 10/03/16 at 02:00 Glucose (Glutose) 22.5 gm Q15M PRN PO DECREASED GLUCOSE; Start 10/03/16 at 02:00 Dextrose (D50w Syringe) 25 ml Q15M PRN IV DECREASED GLUCOSE; Start 10/03/16 at 02:00 Dextrose (D50w Syringe) 50 ml Q15M PRN IV DECREASED GLUCOSE; Start 10/03/16 at 02:00 Glucagon (Glucagen) 1 mg Q15M PRN IM DECREASED GLUCOSE; Start 10/03/16 at 02:00 Glucose (Glutose) 15 gm Q15M PRN BUCCAL DECREASED GLUCOSE; Start 10/03/16 at 02: 00 Polyethylene Glycol (Miralax) 17 gm BID PO Last administered on 10/05/16 09:27 ; Admin Dose 17 GM; Start 10/04/16 at 09:00 Enoxaparin Sodium (Lovenox) 30 mg DAILY SC ; Start 10/06/16 at 09:00 Ciprofloxacin (Cipro) 500 mg BID@06,18 PO Last administered on 10/05/16 17:27; Admin Dose 500 MG; Start 10/05/16 at 18:00 Metronidazole (Flagyl) 500 mg Q8 PO Last administered on 10/05/16 15:21; Admin Dose 500 MG; Start 10/05/16 at 14:00 NAIMA BEY MD Oct 05, 2016 18:03
[2016-10-05] MEDS: FAMOTIDINE 20 MG TAB PO SCH (20:13)
[2016-10-05] MEDS: ATORVASTATIN 40 MG TAB PO SCH (20:13)
[2016-10-05 20:19] VITALS: BP 125/67; RESP 18
[2016-10-06] MEDS: ACCUCHECK XX SCH (02:00)
[2016-10-06 05:48] LABS: ADD SCAN DIFF NO
[2016-10-06 06:01] LABS: BASOPHILS % 0.2 % (0.0-2.0); EOSINOPHILS # 0.1 10^3/ul (0.0-0.5); EOSINOPHILS % 1.4 % (0.0-7.0); HEMATOCRIT 35.7 % (37.0-47.0); HEMOGLOBIN 11.3 g/dl (12.0-16.0); LYMPHOCYTES # 2.6 10^3/ul (0.8-2.9); LYMPHOCYTES % 30.6 % (15.0-51.0); MEAN CORPUSCULAR HEMOGLOBIN 27.7 pg (29.0-33.0); MEAN CORPUSCULAR HGB CONC 31.7 g/dl (32.0-37.0); MEAN CORPUSCULAR VOLUME 87.5 fl (82.0-101.0); MEAN PLATELET VOLUME 10.2 fl (7.4-10.4); MONOCYTE # 0.4 10^3/ul (0.3-0.9); MONOCYTES % 4.7 % (0.0-11.0); NEUTROPHIL # 5.3 10^3/ul (1.6-7.5); NEUTROPHILS % 62.7 % (39.0-77.0); PLATELET COUNT 226 10^3/UL (140-415); RED BLOOD COUNT 4.08 10^6/ul (4.20-5.40); RED CELL DISTRIBUTION WIDTH 14.3 % (11.5-14.5); WHITE BLOOD COUNT 8.4 10^3/ul (4.8-10.8)
[2016-10-06] MEDS: CIPROFLOXACIN 500 MG TAB PO SCH ×2 (06:14→17:31)
[2016-10-06] MEDS: metroNIDAZOLE 500 MG TAB PO SCH ×3 (06:14→21:32)
[2016-10-06 06:57] LABS: POTASSIUM 3.9 mmol/L (3.5-5.1)
[2016-10-06 07:00] LABS: CREATININE 1.34 mg/dl (0.44-1.00)
[2016-10-06 07:01] LABS: CALCIUM 8.7 mg/dl (8.4-10.2); MAGNESIUM 2.5 mg/dl (1.7-2.5); PHOSPHORUS 3.3 mg/dl (2.5-4.9)
[2016-10-06 07:48] VITALS: BP 130/65; RESP 20
[2016-10-06] MEDS: QUETIAPINE 25 MG TAB PO SCH ×3 (09:00→21:00)
[2016-10-06] MEDS: POLYETHYLENE GLYCOL 17 GM PACKET PO SCH ×2 (09:00→21:00)
[2016-10-06] MEDS: ENOXAPARIN 30 MG/0.3 ML SYG SC SCH (09:00)
[2016-10-06] MEDS: AMLODIPINE 2.5 MG TAB PO SCH (09:00)
[2016-10-06] MEDS: OXYBUTYNIN 5 MG TAB PO SCH (09:00)
[2016-10-06] MEDS: LINAGLIPTIN 5 MG TABLET PO SCH (09:00)
[2016-10-06] MEDS: OXCARBAZEPINE 300 MG TAB PO SCH ×3 (09:00→21:00)
[2016-10-06] MEDS: GABAPENTIN 100 MG CAP PO SCH ×3 (09:00→21:00)
[2016-10-06] MEDS: ASCORBIC ACID 500 MG TAB PO SCH (09:00)
[2016-10-06] MEDS: INSULIN ASPART [NOVOLOG] 3 ML PEN SC SCH ×4 (09:07→21:00)
[2016-10-06] MEDS: ARTIFICIAL TEARS 15 ML OPH BOTH EYES SCH ×3 (09:08→21:00)
[2016-10-06] MEDS: INSULIN DETEMIR [LEVEMIR] 3ML CART SC SCH ×2 (09:08→21:00)
--- NOTE | 2016-10-06 11:21 | PN ---
DATE: 10/06/2016 SUBJECTIVE: The patient is stable, still has not had a bowel movement. No other acute events noted . No hemoptysis, hematemesis or hematochezia. OBJECTIVE: VITAL SIGNS: Blood pressure is 130/65, respirations 20, pulse 97, temperature 98.2. HEENT: Head is normocephalic. NECK: Supple. HEART: Regular rate. LUNGS: Show diminished breath sounds at the bases. ABDOMEN: Soft, nontender to palpation. No rebound or guarding. EXTREMITIES: Negative for clubbing, cyanosis. No edema. DERMATOLOGIC: No rashes. MUSCULOSKELETAL: No joint effusions. NEUROLOGIC: No change in exam. MEDICATIONS: The patient's medications have been reviewed. LABORATORY DATA: Shows white count of 8.4, hemoglobin 11.3, hematocrit 35.7, platelet count 226. S odium 145, potassium .2, chloride 105, BUN 25, creatinine 1.34. ASSESSMENT AND PLAN: 1. Fecal impaction. The patient was started on GoLYTELY. We will follow up with GI, may need colo noscopy. 2. Acute encephalopathy on dementia and schizophrenia. The patient's mental status returned back t o baseline. Continue to monitor. 3. History of schizophrenia, bipolar disorder. Continue current psychotropic medications. 4. Nonoliguric acute kidney injury on top of chronic kidney disease. Etiology is hemodynamics. Re nal function appears to be at baseline. Continue supportive care, renally dose all meds, avoid neph rotoxins. 5. Mild hyperkalemia, resolved. 6. Hypothyroidism. Continue Synthroid. 7. Diabetes. Continue current insulin regimen. 8. Dyslipidemia. Continue statin therapy. 9. Seizure disorder. Continue Depakote. 10. Neuropathy. Continue Neurontin. 11. Hypertension. Continue current blood pressure regimen. 12. Gastrointestinal and deep venous thrombosis prophylaxis. Continue proton pump inhibitor and Lo venox. 13. Mild hypernatremia. Continue current free water intake. Dictated By: EDMUNDO SOTO/JORDY Conf#: [id number] DID#: [id number]
--- NOTE | 2016-10-06 13:32 | CONS ---
Date/Time of Note Date/Time of Note DATE: 10/06/16 TIME: 13:31 Assessment/Plan Assessment/Plan Chief Complaint/Hosp Course SUBJECTIVE: No events overnight. No fevers. Patient is awake, lying comfortably in bed. ANTIMICROBIALS: Cipro Flagyl PHYSICAL EXAMINATION: GENERAL: This is a morbidly obese elderly woman who is alert, in no distress. HEENT: Head atraumatic, normocephalic. Sclerae anicteric. Buccal mucosa dry. NECK: Supple, trachea midline. CHEST: Rise symmetrical. Breath sounds diminished to bases. HEART: S1, S2. ABDOMEN: Soft, bowel sounds present. EXTREMITIES: No cyanosis. ASSESSMENT: 1. Systemic inflammatory response syndrome secondary to #2. 2. Fecal impaction, questionable proctitis versus colitis, status post abdominal pain and vomiting. 3. Obesity. 4. Diabetes. 5. History of schizophrenia, bipolar disorder and depression. PLAN: The patient remains stable. Continue present care, GI rec-s==> pending colonoscopy [facility] staff. Problems: Consultation Date/Type/Reason Admit Date/Time Oct 04, 2016 at 19:00 Initial Consult Date 10/03/16 Type of Consultation: id Exam/Review of Systems Vital Signs Vitals Vital Signs Date Time Temp Pulse Resp B/P Pulse Ox O2 Delivery O2 Flow Rate FiO2 10/06/16 07:48 98.2 97 20 130/65 95 10/04/16 01:47 Room Air Intake and Output 10/05/16 10/05/16 10/06/16 15:00 23:00 07:00 Intake Total 1100 ml 720 ml Balance 1100 ml 720 ml Results Result Diagram: 10/06/16 0523 10/06/16 0523 Results 24 hrs Laboratory Tests Test 10/05/16 17:23 10/05/16 20:10 10/06/16 05:23 10/06/16 07:30 Bedside Glucose 135 141 155 Anion Gap 14 Basophils # 0.0 Basophils % 0.2 Blood Urea Nitrogen 25 H Calcium Level 8.7 Carbon Dioxide Level 30 Chloride Level 105 Creatinine 1.34 H Eosinophils # 0.1 Eosinophils % 1.4 Glucose Level 117 Hematocrit 35.7 L Hemoglobin 11.3 L Lymphocytes # 2.6 Lymphocytes % 30.6 Magnesium Level 2.5 Mean Corpuscular Hemoglobin 27.7 L Mean Corpuscular Hemoglobin Concent 31.7 L Mean Corpuscular Volume 87.5 Mean Platelet Volume 10.2 Monocytes # 0.4 Monocytes % 4.7 Neutrophils # 5.3 Neutrophils % 62.7 Nucleated Red Blood Cells # 0.0 Nucleated Red Blood Cells % 0.0 Phosphorus Level 3.3 Platelet Count 226 Potassium Level 3.9 Red Blood Count 4.08 L Red Cell Distribution Width 14.3 Sodium Level 145 H White Blood Count 8.4 Test 10/06/16 11:41 Bedside Glucose 114 Medications Medications Current Medications Acetaminophen (Tylenol Tab) 650 mg Q6H PRN PO PAIN AND OR ELEVATED TEMP; Start 10/03/16 at 01:00 Insulin Detemir (Levemir) 20 unit Q12 SC Last administered on 10/06/16 09:08; Admin Dose 20 UNIT; Start 10/03/16 at 09:00 Diagnostic Test (Pha) (Accucheck) 1 ea 02 XX ; Start 10/03/16 at 02:00 Amlodipine Besylate (Norvasc) 2.5 mg DAILY PO Last administered on 10/05/16 09: 18; Admin Dose 2.5 MG; Start 10/03/16 at 09:00 Atorvastatin Calcium (Lipitor) 40 mg HS PO Last administered on 10/05/16 20:13 ; Admin Dose 40 MG; Start 10/03/16 at 01:30 Famotidine (Pepcid) 20 mg HS PO Last administered on 10/05/16 20:13; Admin Dose 20 MG; Start 10/03/16 at 01:30 Gabapentin (Neurontin) 200 mg TID PO Last administered on 10/05/16 20:13; Admin Dose 200 MG; Start 10/03/16 at 01:30 Hydralazine HCl (Apresoline) 25 mg Q6H PRN PO ELEVATED BLOOD PRESSURE; Start at 01:30 Magnesium Hydroxide (Milk Of Mag) 30 ml Q12 PRN PO CONSTIPATION; Start 10/03/16 at 01:30 Oxcarbazepine (Trileptal) 300 mg TID PO Last administered on 10/05/16 20:13; Admin Dose 300 MG; Start 10/03/16 at 01:30 Oxybutynin Chloride (Ditropan) 5 mg DAILY PO Last administered on 10/05/16 09: 16; Admin Dose 5 MG; Start 10/03/16 at 09:00 Quetiapine Fumarate (Seroquel) 12.5 mg Q4 PRN PO AGITATION; Start 10/03/16 at 01 :30 Quetiapine Fumarate (Seroquel) 50 mg BID PO Last administered on 10/05/16 20:13 ; Admin Dose 50 MG; Start 10/03/16 at 01:30 Ascorbic Acid (Vitamin C) 500 mg DAILY PO Last administered on 10/05/16 09:16; Admin Dose 500 MG; Start 10/03/16 at 09:00 Zolpidem Tartrate (Ambien) 5 mg HS PRN PO INSOMNIA; Start 10/03/16 at 01:30 Eye Lubricant (Artificial Tears Oph) 1 drop TID BOTH EYES Last administered on 10/06/16 09:08; Admin Dose 1 DROP; Start 10/03/16 at 14:30 Linagliptin (Tradjenta) 5 mg DAILY PO Last administered on 10/05/16 09:16; Admin Dose 5 MG; Start 10/03/16 at 09:00 Miscellaneous Information 1 ea NOTE XX ; Start 10/03/16 at 02:00 Glucose (Glutose) 15 gm Q15M PRN PO DECREASED GLUCOSE; Start 10/03/16 at 02:00 Glucose (Glutose) 22.5 gm Q15M PRN PO DECREASED GLUCOSE; Start 10/03/16 at 02:00 Dextrose (D50w Syringe) 25 ml Q15M PRN IV DECREASED GLUCOSE; Start 10/03/16 at 02:00 Dextrose (D50w Syringe) 50 ml Q15M PRN IV DECREASED GLUCOSE; Start 10/03/16 at 02:00 Glucagon (Glucagen) 1 mg Q15M PRN IM DECREASED GLUCOSE; Start 10/03/16 at 02:00 Glucose (Glutose) 15 gm Q15M PRN BUCCAL DECREASED GLUCOSE; Start 10/03/16 at 02: 00 Polyethylene Glycol (Miralax) 17 gm BID PO Last administered on 10/05/16 20:12 ; Admin Dose 17 GM; Start 10/04/16 at 09:00 Enoxaparin Sodium (Lovenox) 30 mg DAILY SC ; Start 10/06/16 at 09:00 Ciprofloxacin (Cipro) 500 mg BID@,18 PO Last administered on 10/06/16 06:14; Admin Dose 500 MG; Start 10/05/16 at 18:00 Metronidazole (Flagyl) 500 mg Q8 PO Last administered on 10/06/16t 06:14; Admin Dose 500 MG; Start 10/05/16 at 14:00 LIZBET GARY NP Oct 06, 2016 13:32
--- NOTE | 2016-10-06 18:07 | CONS ---
Date/Time of Note Date/Time of Note DATE: 10/06/16 TIME: 17:58 Assessment/Plan Assessment/Plan Chief Complaint/Hosp Course ASSESSMENT 1. intractable abdominal pain and vomiting. fecal impaction vs prostatitis/ colitis. CRP elevated which suggest colitis 2. Acute encephalopathy on top of a history of dementia/schizophrenia. 3. History of schizophrenia, bipolar disorder, depression. 4. History of anxiety disorder and depression. 5. Chronic kidney disease with possible component of acute kidney injury. 6. Hypothyroidism. Continue Synthroid. 7. Diabetes. Continue Accu-Cheks and sliding scale. Recommendations: 1. did not take bowel regimen and refusing KUB. 2. I spoke with her son and he is her DPOA. Due to persistent fecal impaction, I will need to do colonoscopy for fecal impaction. Risks benefits and alternatives of colonoscopy d/w son and he understands risks including perforation, aspiration, infection, pain, bleeding. Knowing the risks, he agreed to proceed with the colonoscopy to disimpact the fecal impaction. 3. NPO after midnight 4. Due to high risk of this procedure as described in #2, I will need anesthesia for safer and controlled setting for this colonoscopy. Problems: Consultation Date/Type/Reason Admit Date/Time Oct 04, 2016 at 19:00 Initial Consult Date 10/03/16 Type of Consultation: GI 24 HR Interval Summary Free Text/Dictation yelling , refusing meds, refusing labs, refusing kub, refusing everything Exam/Review of Systems Vital Signs Vitals Vital Signs Date Time Temp Pulse Resp B/P Pulse Ox O2 Delivery O2 Flow Rate FiO2 10/06/16 07:48 98.2 97 20 130/65 95 10/04/16 01:47 Room Air Intake and Output 10/05/16 10/05/16 10/06/16 15:00 23:00 07:00 Intake Total 1100 ml 720 ml Balance 1100 ml 720 ml Exam Psych: confusion Head: atraumatic, normocephalic Eyes: EOMI, nl conjunctiva, nl lids, nl sclera ENMT: mucosa pink and moist, nl external ears & nose, nl lips & teeth, nl nasal mucosa & septum Neck: non-tender, supple Respiratory: clear to auscultation, normal air movement Cardiovascular: nl pulses, regular rate and rhythm Gastrointestinal: bowel sounds, non-tender, soft Results Result Diagram: 10/06/16 0523 10/06/16 0523 Results 24 hrs Laboratory Tests Test 10/05/16 20:10 10/06/16 05:23 10/06/16 07:30 10/06/16 11:41 Bedside Glucose 141 155 114 Anion Gap 14 Basophils # 0.0 Basophils % 0.2 Blood Urea Nitrogen 25 H Calcium Level 8.7 Carbon Dioxide Level 30 Chloride Level 105 Creatinine 1.34 H Eosinophils # 0.1 Eosinophils % 1.4 Glucose Level 117 Hematocrit 35.7 L Hemoglobin 11.3 L Lymphocytes # 2.6 Lymphocytes % 30.6 Magnesium Level 2.5 Mean Corpuscular Hemoglobin 27.7 L Mean Corpuscular Hemoglobin Concent 31.7 L Mean Corpuscular Volume 87.5 Mean Platelet Volume 10.2 Monocytes # 0.4 Monocytes % 4.7 Neutrophils # 5.3 Neutrophils % 62.7 Nucleated Red Blood Cells # 0.0 Nucleated Red Blood Cells % 0.0 Phosphorus Level 3.3 Platelet Count 226 Potassium Level 3.9 Red Blood Count 4.08 L Red Cell Distribution Width 14.3 Sodium Level 145 H White Blood Count 8.4 Test 10/06/16 16:31 Bedside Glucose 177 Medications Medications Current Medications Acetaminophen (Tylenol Tab) 650 mg Q6H PRN PO PAIN AND OR ELEVATED TEMP Last administered on 10/06/16 14:55; Admin Dose 650 MG; Start 10/03/16 at 01:00 Insulin Detemir (Levemir) 20 unit Q12 SC Last administered on 10/06/16 09:08; Admin Dose 20 UNIT; Start 10/03/16 at 09:00 Diagnostic Test (Pha) (Accucheck) 1 ea 02 XX ; Start 10/03/16 at 02:00 Amlodipine Besylate (Norvasc) 2.5 mg DAILY PO Last administered on 10/05/16 09: 18; Admin Dose 2.5 MG; Start 10/03/16 at 09:00 Atorvastatin Calcium (Lipitor) 40 mg HS PO Last administered on 10/05/16 20:13 ; Admin Dose 40 MG; Start 10/03/16 at 01:30 Famotidine (Pepcid) 20 mg HS PO Last administered on 10/05/16 20:13; Admin Dose 20 MG; Start 10/03/16 at 01:30 Gabapentin (Neurontin) 200 mg TID PO Last administered on 10/05/16 20:13; Admin Dose 200 MG; Start 10/03/16 at 01:30 Hydralazine HCl (Apresoline) 25 mg Q6H PRN PO ELEVATED BLOOD PRESSURE; Start at 01:30 Magnesium Hydroxide (Milk Of Mag) 30 ml Q12 PRN PO CONSTIPATION; Start 10/03/16 at 01:30 Oxcarbazepine (Trileptal) 300 mg TID PO Last administered on 10/05/16 20:13; Admin Dose 300 MG; Start 10/03/16 at 01:30 Oxybutynin Chloride (Ditropan) 5 mg DAILY PO Last administered on 10/05/16 09: 16; Admin Dose 5 MG; Start 10/03/16 at 09:00 Quetiapine Fumarate (Seroquel) 12.5 mg Q4 PRN PO AGITATION; Start 10/03/16 at 01 :30 Quetiapine Fumarate (Seroquel) 50 mg BID PO Last administered on 10/05/16 20:13 ; Admin Dose 50 MG; Start 10/03/16 at 01:30 Ascorbic Acid (Vitamin C) 500 mg DAILY PO Last administered on 10/05/16 09:16; Admin Dose 500 MG; Start 10/03/16 at 09:00 Zolpidem Tartrate (Ambien) 5 mg HS PRN PO INSOMNIA; Start 10/03/16 at 01:30 Eye Lubricant (Artificial Tears Oph) 1 drop TID BOTH EYES Last administered on 10/06/16 09:08; Admin Dose 1 DROP; Start 10/03/16 at 14:30 Linagliptin (Tradjenta) 5 mg DAILY PO Last administered on 10/05/16 09:16; Admin Dose 5 MG; Start 10/03/16 at 09:00 Miscellaneous Information 1 ea NOTE XX ; Start 10/03/16 at 02:00 Glucose (Glutose) 15 gm Q15M PRN PO DECREASED GLUCOSE; Start 10/03/16 at 02:00 Glucose (Glutose) 22.5 gm Q15M PRN PO DECREASED GLUCOSE; Start 10/03/16 at 02:00 Dextrose (D50w Syringe) 25 ml Q15M PRN IV DECREASED GLUCOSE; Start 10/03/16 at 02:00 Dextrose (D50w Syringe) 50 ml Q15M PRN IV DECREASED GLUCOSE; Start 10/03/16 at 02:00 Glucagon (Glucagen) 1 mg Q15M PRN IM DECREASED GLUCOSE; Start 10/03/16 at 02:00 Glucose (Glutose) 15 gm Q15M PRN BUCCAL DECREASED GLUCOSE; Start 10/03/16 at 02: 00 Polyethylene Glycol (Miralax) 17 gm BID PO Last administered on 10/05/16 20:12 ; Admin Dose 17 GM; Start 10/04/16 at 09:00 Enoxaparin Sodium (Lovenox) 30 mg DAILY SC ; Start 10/06/16 at 09:00 Ciprofloxacin (Cipro) 500 mg BID@,18 PO Last administered on 10/06/16 17:31; Admin Dose 500 MG; Start 10/05/16 at 18:00 Metronidazole (Flagyl) 500 mg Q8 PO Last administered on 10/06/16 06:14; Admin Dose 500 MG; Start 10/05/16 at 14:00 NAIMA BEY MD Oct 06, 2016 18:07
[2016-10-06] MEDS ORDERED: METOCLOPRAMIDE 10 MG INJ IV ONE (18:30)
[2016-10-06] MEDS ORDERED: NA PHOSPHATE/BIPHOS 133 ML ENEMA PR ONE (18:30)
[2016-10-06] MEDS ORDERED: MAGNESIUM CITRATE 300 ML BTL PO ONE (20:00)
[2016-10-06 20:23] VITALS: BP 179/86; RESP 19
[2016-10-06] MEDS: FAMOTIDINE 20 MG TAB PO SCH (21:00)
[2016-10-06] MEDS: ATORVASTATIN 40 MG TAB PO SCH (21:00)
[2016-10-06] MEDS ORDERED: hydrALAzine 20 MG INJ IV PRN (21:30)
[2016-10-06 22:00] VITALS: BP 169/86; PULSE 96
[2016-10-07] VITALS (7 sets, daily range): BP systolic 124–169; BP diastolic 63–94; PULSE 93–127; RESP 18–22
[2016-10-07] MEDS: ACCUCHECK XX SCH (02:00)
[2016-10-07] MEDS: metroNIDAZOLE 500 MG TAB PO SCH (05:17)
[2016-10-07] MEDS: CIPROFLOXACIN 500 MG TAB PO SCH (05:17)
[2016-10-07] MEDS ORDERED: LORAZEPAM 2 MG INJ IV ONE (08:00)
[2016-10-07] MEDS: INSULIN ASPART [NOVOLOG] 3 ML PEN SC SCH ×4 (08:00→22:00)
[2016-10-07] MEDS ORDERED: MIDAZOLAM 1 MG/ML 2 ML INJ ONE (08:23)
[2016-10-07] MEDS ORDERED: MIDAZOLAM 1 MG/ML 2 ML INJ IV ONE (08:30)
--- NOTE | 2016-10-07 08:32 | OPR ---
Date/Time of Note Date/Time of Note DATE: 10/07/16 TIME: 08:27 Operative Report Free Text/Dictation Impression: 1. fecal impaction s/p disimpaction via colonoscopy and removal of at least 5 handful of hard stool Recommendation 1. continue Golytely prep to finish another 4 liters 2. clear liquid diet 3. KUB in AM 4. if still has stool, will need repeat colonoscopy with disimpaction Procedure Date: Oct 07, 2016 Preoperative Diagnosis fecal impaction refractory to medical therapy Postoperative Diagnosis fecal impaction Operation Performed colonoscopy with fecal disimpaction Surgeon: NAIMA BEY MD Anesthesia: MAC Anesthesiologist: BORA URBINA MD Estimated Blood Loss: minimal Complications: None Pt Condition Post Procedure: stable Disposition: PACU Indications fecal impaction refractory to medical therapy Operative Findings 1. hard stool s/p colonoscopic disimipaction via Biggs net and digitally. s/p removal of at least 5 handful of hard stool. Procedure Description After informed consent and timeout, I performed digital examination and disimpacted her to the length of my finger. After which I inserted an adult colonoscope and advanced to 25 cm where I encountered solid stool. I removed several hard stool via biggs net and gavaged via 1 liter of water which loosened further stool proximally, afterwhich the stool migrated distally and I removed another 4 handful of stool manually. I did not do retroflexion as there is still full of stool and for fear of perforation. I re-inserted the scope but cannot see mucosa as it is covered in stool but able to advance to 50 cm. I then removed the colonoscope while removing air. NAIMA BEY MD Oct 07, 2016 08:32
[2016-10-07] MEDS ORDERED: FENTAnyl 50 MCG/ML VIAL ONE (08:44)
[2016-10-07] MEDS ORDERED: PROPOFOL 20 ML ONE (08:44)
[2016-10-07] MEDS: ARTIFICIAL TEARS 15 ML OPH BOTH EYES SCH ×3 (09:00→22:00)
[2016-10-07] MEDS: OXCARBAZEPINE 300 MG TAB PO SCH ×4 (09:00→22:00)
[2016-10-07] MEDS: QUETIAPINE 25 MG TAB PO SCH ×3 (09:00→22:00)
[2016-10-07] MEDS: ENOXAPARIN 30 MG/0.3 ML SYG SC SCH ×2 (09:00→10:18)
[2016-10-07] MEDS: LINAGLIPTIN 5 MG TABLET PO SCH ×2 (09:00→10:18)
[2016-10-07] MEDS: AMLODIPINE 2.5 MG TAB PO SCH ×2 (09:00→10:18)
[2016-10-07] MEDS: POLYETHYLENE GLYCOL 17 GM PACKET PO SCH ×3 (09:00→22:00)
[2016-10-07] MEDS: INSULIN DETEMIR [LEVEMIR] 3ML CART SC SCH ×3 (09:00→22:00)
[2016-10-07] MEDS: OXYBUTYNIN 5 MG TAB PO SCH ×2 (09:00→10:17)
[2016-10-07] MEDS: GABAPENTIN 100 MG CAP PO SCH ×4 (09:00→22:00)
[2016-10-07] MEDS: ASCORBIC ACID 500 MG TAB PO SCH ×2 (09:00→10:18)
[2016-10-07] MEDS ORDERED: DIPHENHYDRAMINE 50 MG INJ ONE (09:31)
[2016-10-07] MEDS ORDERED: METOPROLOL 5 MG INJ IV ONE (10:00)
[2016-10-07] MEDS ORDERED: DIPHENHYDRAMINE 50 MG INJ IV ONE (10:00)
[2016-10-07] MEDS ORDERED: PEG/ELECTROLYTES 4L BTL PO ONE (10:00)
[2016-10-07] MEDS ORDERED: METOCLOPRAMIDE 10 MG INJ IV ONE (10:00)
--- NOTE | 2016-10-07 10:04 | PN ---
DATE: 10/07/2016 SUBJECTIVE: The patient is scheduled for disimpaction today, possible colonoscopy. No other events noted. OBJECTIVE: VITAL SIGNS: Blood pressure 133/74, respirations 22, pulse 107, temperature 97.9. HEENT: Head is normocephalic. NECK: Supple. HEART: Regular rate. LUNGS: Show diminished breath sounds at the base. ABDOMEN: Soft, nontender to palpation. No rebound or guarding. EXTREMITIES: Negative for clubbing, cyanosis. No edema. DERMATOLOGIC: No rashes. MUSCULOSKELETAL: No joint effusions. NEUROLOGIC: No change in exam. MEDICATIONS: Patient's medications have been reviewed. LABORATORY DATA: Has been reviewed, currently pending. ASSESSMENT AND PLAN: 1. Fecal impaction. Patient is status GoLYTELY pending disimpaction today. 2. Acute encephalopathy, dementia, and schizophrenia. The patient's mental status is at baseline. Continue psychotropic medications. 3. Nonoliguric acute kidney injury on top of chronic kidney disease. Etiology is hemodynamics. Re nal function is at baseline. Continue supportive care, renally dose meds, avoid nephrotoxins. 4. Mild hypernatremia. Continue to encourage free water intake. 5. Hypothyroidism. Continue Synthroid. 6. Diabetes. Continue current insulin regimen. 7. Dyslipidemia. Continue statin therapy. 8. Seizure disorder. Continue Depakote. 9. Neuropathy. Continue Neurontin. 10. Gastrointestinal and deep venous thrombosis prophylaxis. Continue proton pump inhibitor and Lo venox. 11. Systemic inflammatory response syndrome. The patient is currently stable, remains on antibiotic s, Cipro. Continue to monitor. Dictated By: EDMUNDO SOTO/JORDY Conf#: [id number] DID#: [id number]
--- NOTE | 2016-10-07 12:29 | CONS ---
Date/Time of Note Date/Time of Note DATE: 10/07/16 TIME: 12:28 Assessment/Plan Assessment/Plan Chief Complaint/Hosp Course SUBJECTIVE: No events overnight. No fevers. Patient is awake, lying comfortably in bed. ANTIMICROBIALS: Cipro Flagyl PHYSICAL EXAMINATION: GENERAL: This is a morbidly obese elderly woman who is alert, in no distress. HEENT: Head atraumatic, normocephalic. Sclerae anicteric. Buccal mucosa dry. NECK: Supple, trachea midline. CHEST: Rise symmetrical. Breath sounds diminished to bases. HEART: S1, S2. ABDOMEN: Soft, bowel sounds present. EXTREMITIES: No cyanosis. ASSESSMENT: 1. Systemic inflammatory response syndrome secondary to #2. 2. Severe fecal impaction, status post abdominal pain and vomiting==> s/p colonoscopy with disimpaction. 3. Obesity. 4. Diabetes. 5. History of schizophrenia, bipolar disorder and depression. PLAN: The patient remains stable. Continue present care, GI rec-s, dc abx [facility] staff. Problems: Consultation Date/Type/Reason Admit Date/Time Oct 04, 2016 at 19:00 Initial Consult Date 10/03/16 Type of Consultation: id Exam/Review of Systems Vital Signs Vitals Vital Signs Date Time Temp Pulse Resp B/P Pulse Ox O2 Delivery O2 Flow Rate FiO2 10/07/16 09:41 97.4 124 22 124/83 94 Nasal Cannula Intake and Output 10/06/16 10/06/16 10/07/16 14:59 22:59 06:59 Intake Total 620 ml 120 ml Balance 620 ml 120 ml Results Result Diagram: 10/06/16 0523 10/06/16 0523 Results 24 hrs Laboratory Tests Test 10/06/16 16:31 10/06/16 20:47 10/07/16 08:01 10/07/16 11:46 Bedside Glucose 177 147 187 206 Medications Medications Current Medications Acetaminophen (Tylenol Tab) 650 mg Q6H PRN PO PAIN AND OR ELEVATED TEMP Last administered on 10/06/16 14:55; Admin Dose 650 MG; Start 10/03/16 at 01:00 Insulin Detemir (Levemir) 20 unit Q12 SC Last administered on 10/07/16 10:31; Admin Dose 20 UNIT; Start 10/03/16 at 09:00 Diagnostic Test (Pha) (Accucheck) 1 ea 02 XX ; Start 10/03/16 at 02:00 Amlodipine Besylate (Norvasc) 2.5 mg DAILY PO Last administered on 10/07/16 10 :18; Admin Dose 2.5 MG; Start 10/03/16 at 09:00 Atorvastatin Calcium (Lipitor) 40 mg HS PO Last administered on 10/05/16 20:13 ; Admin Dose 40 MG; Start 10/03/16 at 01:30 Famotidine (Pepcid) 20 mg HS PO Last administered on 10/05/16 20:13; Admin Dose 20 MG; Start 10/03/16 at 01:30 Gabapentin (Neurontin) 200 mg TID PO Last administered on 10/07/16 12:20; Admin Dose 200 MG; Start 10/03/16 at 01:30 Hydralazine HCl (Apresoline) 25 mg Q6H PRN PO ELEVATED BLOOD PRESSURE; Start at 01:30 Magnesium Hydroxide (Milk Of Mag) 30 ml Q12 PRN PO CONSTIPATION; Start 10/03/16 at 01:30 Oxcarbazepine (Trileptal) 300 mg TID PO Last administered on 10/07/16 12:20; Admin Dose 300 MG; Start 10/03/16 at 01:30 Oxybutynin Chloride (Ditropan) 5 mg DAILY PO Last administered on 10/07/16 10: 17; Admin Dose 5 MG; Start 10/03/16 at 09:00 Quetiapine Fumarate (Seroquel) 12.5 mg Q4 PRN PO AGITATION; Start 10/03/16 at 01 :30 Quetiapine Fumarate (Seroquel) 50 mg BID PO Last administered on 10/07/16 10: 21; Admin Dose 50 MG; Start 10/03/16 at 01:30 Ascorbic Acid (Vitamin C) 500 mg DAILY PO Last administered on 10/07/16 10:18 ; Admin Dose 500 MG; Start 10/03/16 at 09:00 Zolpidem Tartrate (Ambien) 5 mg HS PRN PO INSOMNIA; Start 10/03/16 at 01:30 Eye Lubricant (Artificial Tears Oph) 1 drop TID BOTH EYES Last administered on 10/06/16 09:08; Admin Dose 1 DROP; Start 10/03/16 at 14:30 Linagliptin (Tradjenta) 5 mg DAILY PO Last administered on 10/07/16 10:18; Admin Dose 5 MG; Start 10/03/16 at 09:00 Miscellaneous Information 1 ea NOTE XX ; Start 10/03/16 at 02:00 Glucose (Glutose) 15 gm Q15M PRN PO DECREASED GLUCOSE; Start 10/03/16 at 02:00 Glucose (Glutose) 22.5 gm Q15M PRN PO DECREASED GLUCOSE; Start 10/03/16 at 02:00 Dextrose (D50w Syringe) 25 ml Q15M PRN IV DECREASED GLUCOSE; Start 10/03/16 at 02:00 Dextrose (D50w Syringe) 50 ml Q15M PRN IV DECREASED GLUCOSE; Start 10/03/16 at 02:00 Glucagon (Glucagen) 1 mg Q15M PRN IM DECREASED GLUCOSE; Start 10/03/16 at 02:00 Glucose (Glutose) 15 gm Q15M PRN BUCCAL DECREASED GLUCOSE; Start 10/03/16 at 02: 00 Polyethylene Glycol (Miralax) 17 gm BID PO Last administered on 10/07/16 10:21 ; Admin Dose 17 GM; Start 10/04/16 at 09:00 Enoxaparin Sodium (Lovenox) 30 mg DAILY SC Last administered on 10/07/16 10:18 ; Admin Dose 30 MG; Start 10/06/16 at 09:00 Ciprofloxacin (Cipro) 500 mg BID@,18 PO Last administered on 10/06/16 17:31; Admin Dose 500 MG; Start 10/05/16 at 18:00 Metronidazole (Flagyl) 500 mg Q8 PO Last administered on 10/06/16 06:14; Admin Dose 500 MG; Start 10/05/16 at 14:00 Hydralazine HCl (Apresoline) 10 mg Q4H PRN IV ELEVATED SYSTOLIC BP Last administered on 10/06/16 22:14; Admin Dose 10 MG; Start 10/06/16 at 21:30 LIZBET GRAY NP Oct 07, 2016 12:29
--- NOTE | 2016-10-07 17:49 | RADRPT ---
PROCEDURE: XR Abdomen. CLINICAL INDICATION: Abdomen pain. TECHNIQUE: AP supine abdomen x-ray. COMPARISON: 10/05/2016. FINDINGS: The bowel gas pattern is normal. There is no evidence of obstruction. There are no abnormal calcifications overlying the urinary tracts. There are degenerative changes of the spine. IMPRESSION: 1. No evidence of bowel obstruction. 2. Degenerative changes of the spine. RPTAT: QQ .Rojas Harry MD, MD Date Time Electronically viewed and signed by .Rojas Harry MD, MD on 10/07/2016 17:48 .R/
[2016-10-07] MEDS: ATORVASTATIN 40 MG TAB PO SCH (22:00)
[2016-10-07] MEDS: FAMOTIDINE 20 MG TAB PO SCH (22:00)
[2016-10-08] MEDS: ACCUCHECK XX SCH (02:00)
[2016-10-08 06:10] LABS: ADD SCAN DIFF NO
[2016-10-08 06:16] LABS: BASOPHILS % 0.2 % (0.0-2.0); EOSINOPHILS # 0.2 10^3/ul (0.0-0.5); EOSINOPHILS % 1.8 % (0.0-7.0); HEMATOCRIT 37.6 % (37.0-47.0); HEMOGLOBIN 11.5 g/dl (12.0-16.0); LYMPHOCYTES # 2.6 10^3/ul (0.8-2.9); MEAN CORPUSCULAR HEMOGLOBIN 27.3 pg (29.0-33.0); MEAN CORPUSCULAR HGB CONC 30.6 g/dl (32.0-37.0); MEAN CORPUSCULAR VOLUME 89.3 fl (82.0-101.0); MEAN PLATELET VOLUME 10.5 fl (7.4-10.4); MONOCYTE # 0.5 10^3/ul (0.3-0.9); MONOCYTES % 5.4 % (0.0-11.0); NEUTROPHIL # 5.2 10^3/ul (1.6-7.5); NEUTROPHILS % 61.4 % (39.0-77.0); PLATELET COUNT 237 10^3/UL (140-415); RED BLOOD COUNT 4.21 10^6/ul (4.20-5.40); RED CELL DISTRIBUTION WIDTH 14.8 % (11.5-14.5); WHITE BLOOD COUNT 8.5 10^3/ul (4.8-10.8)
[2016-10-08 06:31] LABS: POTASSIUM 4.2 mmol/L (3.5-5.1)
[2016-10-08 06:34] LABS: CREATININE 1.18 mg/dl (0.44-1.00)
[2016-10-08 06:35] LABS: CALCIUM 8.8 mg/dl (8.4-10.2); MAGNESIUM 2.4 mg/dl (1.7-2.5)
[2016-10-08 07:35] VITALS: BP 130/60; RESP 16
[2016-10-08] MEDS: INSULIN ASPART [NOVOLOG] 3 ML PEN SC SCH ×4 (08:43→20:56)
[2016-10-08] MEDS: ENOXAPARIN 30 MG/0.3 ML SYG SC SCH (08:44)
[2016-10-08] MEDS: INSULIN DETEMIR [LEVEMIR] 3ML CART SC SCH ×2 (08:45→20:54)
[2016-10-08] MEDS: OXYBUTYNIN 5 MG TAB PO SCH (08:46)
[2016-10-08] MEDS: GABAPENTIN 100 MG CAP PO SCH ×3 (08:46→20:50)
[2016-10-08] MEDS: ARTIFICIAL TEARS 15 ML OPH BOTH EYES SCH ×3 (08:46→20:49)
[2016-10-08] MEDS: QUETIAPINE 25 MG TAB PO SCH ×2 (08:46→20:51)
[2016-10-08] MEDS: AMLODIPINE 2.5 MG TAB PO SCH (08:47)
[2016-10-08] MEDS: POLYETHYLENE GLYCOL 17 GM PACKET PO SCH ×3 (08:47→22:00)
[2016-10-08] MEDS: LINAGLIPTIN 5 MG TABLET PO SCH (08:47)
[2016-10-08] MEDS: OXCARBAZEPINE 300 MG TAB PO SCH ×3 (08:47→20:50)
[2016-10-08] MEDS: ASCORBIC ACID 500 MG TAB PO SCH (08:47)
--- NOTE | 2016-10-08 10:17 | PN ---
DATE: 10/08/2016 SUBJECTIVE: The patient had disimpaction yesterday, was also given GoLYTELY and has had 2 bowel mov ements. No other events noted. OBJECTIVE: VITAL SIGNS: Blood pressure 130/64, respirations 16, pulse 94, temperature 98.2. HEENT: Head is normocephalic. NECK: Supple. HEART: Regular rate. LUNGS: Show diminished breath sounds at the bases. ABDOMEN: Soft, nontender to palpation. No rebound or guarding. EXTREMITIES: Negative for clubbing, cyanosis, No edema. DERMATOLOGIC: No rashes. MUSCULOSKELETAL: No joint effusions. NEUROLOGIC: No change in exam. MEDICATIONS: The patient's medications have been reviewed. LABORATORY DATA: Shows sodium 146, potassium 4.2, BUN 16, creatinine 1.18. White count 8.5, hemogl obin 11.5, hematocrit 37.6, platelet count 237. The patient's KUB was reviewed. ASSESSMENT AND PLAN: 1. Status post fecal impaction. The patient is status post disimpaction and status post GoLYTELY w ith multiple bowel movements. Continue to monitor. 2. Acute encephalopathy on dementia and schizophrenia. The patient's mental status is back to base line. Continue psychotropic medication. 3. Nonoliguric acute kidney injury on top of chronic kidney disease, etiology is hemodynamics. Anshu al function has returned to baseline. Continue supportive care. 4. Mild hypernatremia. Continue to encourage free water intake. 5. Hypothyroidism. Continue Synthroid. 6. Diabetes. Continue Accu-Cheks and sliding scale. 7. Dyslipidemia. Continue statin therapy. 8. Seizure disorder. Continue Depakote. 9. Neuropathy. Continue Neurontin. 10. Gastrointestinal and deep venous thrombosis prophylaxis. Continue proton pump inhibitor and Lo venox. 11. Systemic inflammatory response syndrome. Continue to monitor. Follow up with ID. Dictated By: EDMUNDO DEY DO NR/NTS Conf#: [id number] DID#: [id number]
--- NOTE | 2016-10-08 15:00 | CONS ---
Date/Time of Note Date/Time of Note DATE: 10/08/16 TIME: 14:56 Assessment/Plan Assessment/Plan Chief Complaint/Hosp Course ASSESSMENT 1. intractable abdominal pain and vomiting. s/p colonoscopy with disimpaction on 10-07-16. Post-procedure KUB normal and showed successful decompression. 2. Acute encephalopathy on top of a history of dementia/schizophrenia. 3. History of schizophrenia, bipolar disorder, depression. 4. History of anxiety disorder and depression. 5. Chronic kidney disease with possible component of acute kidney injury. 6. Hypothyroidism. Continue Synthroid. 7. Diabetes. Continue Accu-Cheks and sliding scale. Recommendations: 1. advance diet to regular 2. daily miralax 17g daily even when patient discharged 3. OK from GI perspective to dc if ok with primary and other consultants. Problems: Consultation Date/Type/Reason Admit Date/Time Oct 04, 2016 at 19:00 Initial Consult Date 10/03/16 Type of Consultation: GI 24 HR Interval Summary Free Text/Dictation patient is decompressed, no n/v, no abdominal pain, tolerates liquids. Constitutional: improved Exam/Review of Systems Vital Signs Vitals Vital Signs Date Time Temp Pulse Resp B/P Pulse Ox O2 Delivery O2 Flow Rate FiO2 10/08/16 07:35 98.2 94 16 130/60 96 10/07/16 09:41 Nasal Cannula Intake and Output 10/07/16 10/07/16 10/08/16 15:00 23:00 07:00 Intake Total 0 ml 1080 ml 0 ml Balance 0 ml 1080 ml 0 ml Exam Constitutional: alert, well developed Psych: nl mood/affect, no complaints Head: atraumatic, normocephalic Eyes: EOMI, nl conjunctiva, nl lids, nl sclera ENMT: mucosa pink and moist, nl external ears & nose, nl lips & teeth, nl nasal mucosa & septum Neck: non-tender, supple Respiratory: clear to auscultation, normal air movement Cardiovascular: nl pulses, regular rate and rhythm Gastrointestinal: bowel sounds, non-tender, soft Results Result Diagram: 10/08/16 0458 10/08/16 0458 Results 24 hrs Laboratory Tests Test 10/07/16 16:47 10/07/16 21:44 10/08/16 04:58 10/08/16 07:36 Bedside Glucose 150 121 156 Anion Gap 15 Basophils # 0.0 Basophils % 0.2 Blood Urea Nitrogen 16 # Calcium Level 8.8 Carbon Dioxide Level 27 Chloride Level 108 Creatinine 1.18 H Eosinophils # 0.2 Eosinophils % 1.8 Glucose Level 141 Hematocrit 37.6 Hemoglobin 11.5 L Lymphocytes # 2.6 Lymphocytes % 31.0 Magnesium Level 2.4 Mean Corpuscular Hemoglobin 27.3 L Mean Corpuscular Hemoglobin Concent 30.6 L Mean Corpuscular Volume 89.3 Mean Platelet Volume 10.5 H Monocytes # 0.5 Monocytes % 5.4 Neutrophils # 5.2 Neutrophils % 61.4 Nucleated Red Blood Cells # 0.0 Nucleated Red Blood Cells % 0.0 Phosphorus Level 3.0 Platelet Count 237 Potassium Level 4.2 Red Blood Count 4.21 Red Cell Distribution Width 14.8 H Sodium Level 146 H White Blood Count 8.5 Test 10/08/16 11:52 Bedside Glucose 250 H Medications Medications Current Medications Acetaminophen (Tylenol Tab) 650 mg Q6H PRN PO PAIN AND OR ELEVATED TEMP Last administered on 10/06/16 14:55; Admin Dose 650 MG; Start 10/03/16 at 01:00 Insulin Detemir (Levemir) 20 unit Q12 SC Last administered on 10/08/16 08:45; Admin Dose 20 UNIT; Start 10/03/16 at 09:00 Diagnostic Test (Pha) (Accucheck) 1 ea 02 XX ; Start 10/03/16 at 02:00 Amlodipine Besylate (Norvasc) 2.5 mg DAILY PO Last administered on 10/08/16 08 :47; Admin Dose 2.5 MG; Start 10/03/16 at 09:00 Atorvastatin Calcium (Lipitor) 40 mg HS PO Last administered on 10/05/16 20:13 ; Admin Dose 40 MG; Start 10/03/16 at 01:30 Famotidine (Pepcid) 20 mg HS PO Last administered on 10/05/16 20:13; Admin Dose 20 MG; Start 10/03/16 at 01:30 Gabapentin (Neurontin) 200 mg TID PO Last administered on 10/08/16 12:07; Admin Dose 200 MG; Start 10/03/16 at 01:30 Hydralazine HCl (Apresoline) 25 mg Q6H PRN PO ELEVATED BLOOD PRESSURE; Start at 01:30 Magnesium Hydroxide (Milk Of Mag) 30 ml Q12 PRN PO CONSTIPATION; Start 10/03/16 at 01:30 Oxcarbazepine (Trileptal) 300 mg TID PO Last administered on 10/08/16 12:07; Admin Dose 300 MG; Start 10/03/16 at 01:30 Oxybutynin Chloride (Ditropan) 5 mg DAILY PO Last administered on 10/08/16 08: 46; Admin Dose 5 MG; Start 10/03/16 at 09:00 Quetiapine Fumarate (Seroquel) 12.5 mg Q4 PRN PO AGITATION; Start 10/03/16 at 01 :30 Quetiapine Fumarate (Seroquel) 50 mg BID PO Last administered on 10/08/16 08: 46; Admin Dose 50 MG; Start 10/03/16 at 01:30 Ascorbic Acid (Vitamin C) 500 mg DAILY PO Last administered on 10/08/16 08:47 ; Admin Dose 500 MG; Start 10/03/16 at 09:00 Zolpidem Tartrate (Ambien) 5 mg HS PRN PO INSOMNIA; Start 10/03/16 at 01:30 Eye Lubricant (Artificial Tears Oph) 1 drop TID BOTH EYES Last administered on 10/08/16 12:07; Admin Dose 1 DROP; Start 10/03/16 at 14:30 Linagliptin (Tradjenta) 5 mg DAILY PO Last administered on 10/08/16 08:47; Admin Dose 5 MG; Start 10/03/16 at 09:00 Miscellaneous Information 1 ea NOTE XX ; Start 10/03/16 at 02:00 Glucose (Glutose) 15 gm Q15M PRN PO DECREASED GLUCOSE; Start 10/03/16 at 02:00 Glucose (Glutose) 22.5 gm Q15M PRN PO DECREASED GLUCOSE; Start 10/03/16 at 02:00 Dextrose (D50w Syringe) 25 ml Q15M PRN IV DECREASED GLUCOSE; Start 10/03/16 at 02:00 Dextrose (D50w Syringe) 50 ml Q15M PRN IV DECREASED GLUCOSE; Start 10/03/16 at 02:00 Glucagon (Glucagen) 1 mg Q15M PRN IM DECREASED GLUCOSE; Start 10/03/16 at 02:00 Glucose (Glutose) 15 gm Q15M PRN BUCCAL DECREASED GLUCOSE; Start 10/03/16 at 02: 00 Polyethylene Glycol (Miralax) 17 gm BID PO Last administered on 10/08/16 08:47 ; Admin Dose 17 GM; Start 10/04/16 at 09:00 Enoxaparin Sodium (Lovenox) 30 mg DAILY SC Last administered on 10/08/16 08:44 ; Admin Dose 30 MG; Start 10/06/16 at 09:00 Hydralazine HCl (Apresoline) 10 mg Q4H PRN IV ELEVATED SYSTOLIC BP Last administered on 10/06/16 22:14; Admin Dose 10 MG; Start 10/06/16 at 21:30 NAIMA BEY MD Oct 08, 2016 15:00
[2016-10-08 20:30] VITALS: BP 139/80; RESP 18
[2016-10-08] MEDS: ATORVASTATIN 40 MG TAB PO SCH (20:50)
[2016-10-08] MEDS: FAMOTIDINE 20 MG TAB PO SCH (20:50)
[2016-10-09] MEDS: ACCUCHECK XX SCH (02:00)
[2016-10-09 07:40] VITALS: BP 118/58; RESP 17
[2016-10-09] MEDS: INSULIN DETEMIR [LEVEMIR] 3ML CART SC SCH (08:36)
[2016-10-09] MEDS: INSULIN ASPART [NOVOLOG] 3 ML PEN SC SCH ×2 (08:36→12:00)
[2016-10-09] MEDS: ASCORBIC ACID 500 MG TAB PO SCH (08:37)
[2016-10-09] MEDS: ENOXAPARIN 30 MG/0.3 ML SYG SC SCH (08:37)
[2016-10-09] MEDS: LINAGLIPTIN 5 MG TABLET PO SCH (08:37)
[2016-10-09] MEDS: QUETIAPINE 25 MG TAB PO SCH (08:37)
[2016-10-09] MEDS: OXCARBAZEPINE 300 MG TAB PO SCH ×2 (08:37→13:04)
[2016-10-09] MEDS: GABAPENTIN 100 MG CAP PO SCH ×2 (08:38→13:04)
[2016-10-09] MEDS: POLYETHYLENE GLYCOL 17 GM PACKET PO SCH (08:38)
[2016-10-09] MEDS: ARTIFICIAL TEARS 15 ML OPH BOTH EYES SCH ×2 (08:38→13:04)
[2016-10-09] MEDS: OXYBUTYNIN 5 MG TAB PO SCH (08:38)
[2016-10-09] MEDS: AMLODIPINE 2.5 MG TAB PO SCH (08:40)
--- NOTE | 2016-10-09 15:57 | DS ---
DATE OF ADMISSION: 10/04/2016 DATE OF DISCHARGE: 10/09/2016 HOSPITAL COURSE: This is a 81-year-old female with a past medical history of schizophrenia, bipolar disorder, depression, hypertension, diabetes, hypothyroidism, dyslipidemia, seizure disorder, chron ic kidney disease, who presented to [facility] from [facility] facility due t o an episode of nausea, vomiting. The patient in the emergency room had CT scan of abdomen and pelv is which showed fecal impaction and possible proctitis. The patient was admitted to the med/surg fo r evaluation. In terms of the patient's GI evaluation, was seen by , a call or contact centre operator. The patient was treated with bowel regimen GoLYTELY, MiraLax. However, the patient was unable to have a bowel movement and eventually underwent de-impaction by . The patient has since had regular bowel movements and been clinically stable. The patient was also seen by Dr. Herrmann for po ssibility of proctitis. The patient was initially on antibiotic therapy that was eventually removed . His cultures were checked and negative. At this point, the patient has no signs of overt infecti ons, but stable. The patient also had acute kidney injury on admission which is felt to be secondar y to hemodynamics. Renal function is improved back to previous baseline. The patient also had acut e encephalopathy on admission, felt to be secondary to toxic metabolic that is subsequently improved and the patient is back to her baseline state. The patient's other medical problems include hypoth yroidism, diabetes, dyslipidemia, seizure disorder and neuropathy have been stable. Currently, at t his time, the patient is stable, in no acute distress, will be discharged back to [facility] to continue care. FINAL DIAGNOSES: 1. Fecal impaction. 2. Proctitis resolved. 3. Acute encephalopathy on dementia, schizophrenia. 4. Nonoliguric acute kidney injury on top of chronic kidney disease. 5. Mild hyponatremia. 6. Hypothyroidism. 7. Diabetes. 8. Dyslipidemia. 9. Seizure disorder. 10. Neuropathy. 11. SIRS. The patient is status post antibiotics. FINAL MEDICATIONS: See reconciliation list. Please note I spent over 40 minutes of time for preparation of discharge. Dictated By: EDMUNDO SOTO/JORDY Conf#: [id number] [facility]#: [id number]
--- NOTE | 2016-10-09 16:13 | CONS ---
Date/Time of Note Date/Time of Note DATE: 10/09/16 TIME: 16:13 Assessment/Plan Assessment/Plan Chief Complaint/Hosp Course ASSESSMENT 1. intractable abdominal pain and vomiting. s/p colonoscopy with disimpaction on 10-07-16. Post-procedure KUB normal and showed successful decompression. 2. Acute encephalopathy on top of a history of dementia/schizophrenia. 3. History of schizophrenia, bipolar disorder, depression. 4. History of anxiety disorder and depression. 5. Chronic kidney disease with possible component of acute kidney injury. 6. Hypothyroidism. Continue Synthroid. 7. Diabetes. Continue Accu-Cheks and sliding scale. Recommendations: 1. advance diet to regular 2. daily miralax 17g daily even when patient discharged 3. OK from GI perspective to dc if ok with primary and other consultants. Problems: Consultation Date/Type/Reason Admit Date/Time Oct 04, 2016 at 19:00 Initial Consult Date 10/03/16 Type of Consultation: GI Exam/Review of Systems Vital Signs Vitals Vital Signs Date Time Temp Pulse Resp B/P Pulse Ox O2 Delivery O2 Flow Rate FiO2 10/09/16 07:40 98.2 110 17 118/58 98 10/07/16 09:41 Nasal Cannula Intake and Output 10/08/16 10/08/16 10/09/16 15:00 23:00 07:00 Intake Total 740 ml 240 ml Balance 740 ml 240 ml Results Result Diagram: 10/08/16 0458 10/08/16 0458 Results 24 hrs Laboratory Tests Test 10/08/16 17:14 10/08/16 20:47 10/09/16 03:52 10/09/16 08:25 Bedside Glucose 154 179 192 270 H Test 10/09/16 12:22 Bedside Glucose 135 NAIMA BEY MD Oct 09, 2016 16:13
== END 2016-10-09 14:31 | DRG 388 ==
LOC: E/R 19:06 → INTOOBSV 23:18 → PP2 23:18 → OBSVTOIN 10-04 19:00
PROVIDERS: ADMIT Internal Medicine Nephrology; ATTEND Internal Medicine Nephrology
PROC: 0DCE8ZZ Extirpation of Matter from Large Intestine, Via Natural or Artificial Opening Endoscopic (ICD-10-PCS; principal; 2016-10-07 08:00)
DX: K56.41 Fecal impaction (principal); G92 Toxic encephalopathy; N17.9 Acute kidney failure, unspecified; E87.0 Hyperosmolality and hypernatremia; E11.22 Type 2 diabetes mellitus with diabetic chronic kidney disease; R65.10 Systemic inflammatory response syndrome (SIRS) of non-infectious origin without acute organ dysfunction; E87.5 Hyperkalemia; E11.40 Type 2 diabetes mellitus with diabetic neuropathy, unspecified; K62.89 Other specified diseases of anus and rectum; K52.9 Noninfective gastroenteritis and colitis, unspecified; I12.9 Hypertensive chronic kidney disease with stage 1 through stage 4 chronic kidney disease, or unspecified chronic kidney disease; N18.9 Chronic kidney disease, unspecified; E66.9 Obesity, unspecified; Z68.33 Body mass index [BMI] 33.0-33.9, adult; E03.9 Hypothyroidism, unspecified; F20.9 Schizophrenia, unspecified; F31.9 Bipolar disorder, unspecified; E78.5 Hyperlipidemia, unspecified; G40.909 Epilepsy, unspecified, not intractable, without status epilepticus; Z79.4 Long term (current) use of insulin; Z79.84 Long term (current) use of oral hypoglycemic drugs
CPT/HCPCS: 71010; 74000; 74177; 80048; 80053; 81001; 81003; 82962; 83690; 83735; 84100; 84484; 85025; 86140; 87081; 93005; 96365; 96375; 99217; G0378; J0360; J1200; J1650; J1815; J2060; J2250; J2405; J2543; J2765; J3010; Q9967